=== PATIENT | female | born 1960 | race African-American/Black ===

== ENCOUNTER → 2017-10-25 18:35 | Outpatient (REF) | payer OTHER, SELFPAY | LOC: LAB 18:35 | PROVIDERS: Visit Provider Nurse Practitioner Obstetrics & Gynecology | DX: Z01.419 Encounter for gynecological examination (general) (routine) without abnormal findings (principal); N39.0 Urinary tract infection, site not specified | CPT/HCPCS: 87086; 87088; 87186 ==

== ENCOUNTER → 2017-11-20 10:49 | Outpatient (CLI) | payer OTHER, SELFPAY ==
--- NOTE | 2017-11-20 10:51 | MM_ITS ---
MM Dig screening mamm BI w/CAD CAD Screening ORDERING PHYSICIAN : Jd Purvis MD PATIENT AGE: 57 years GENDER: Female HISTORY.. Estradiol . No new complaints. Very Minor asymmetry stable Family history. Sibling sister and cousin with breast cancer postmenopausal TECHNIQUE: Standard CC and MLO images were obtained. R2 CAD reviewed. FINDINGS: Moderate dense residual breast tissue at the anterior, retroareolar region extending towards upper-outer quadrant. Similar overall pattern to previous studies. No no prominent change. Mammography of slight decrease sensitivity in breast of this inhomogeneous character with areas of moderate density... no suspicious calcifications.. No suspicious dominant nor prominent mass... Self breast examination perhaps to be encouraged, and if any palpable areas developing low threshold for ultrasound suggested in this moderately dense breast. (Ultrasound is a useful compliment,/augment to mammography in denser breast tissue) RIGHT BREAST: Overall appears stable. Slightly denser glandular tissue at the retroareolar region on right than LEFT BREAST:Area of minimal density at the deep lateral left breast, likely very slight accentuated a summation shadow today. Also it dissipates and is not evident on today's additional axillary cc view supporting merely summation shadow.. Follow-up in one year adequate. Other similar areas of been seen previously for example 2016. IMPRESSION:.... Follow-up in one year 1. The Moderately dense breast bilaterally slightly decreases sensitivity of mammography. . 2. Overall no significant new areas of concern. Bilateral follow-up in one year recommended. 3. Self breast examination perhaps to be encouraged, and if any palpable areas developing low threshold for ultrasound suggested in this moderately dense breast. Area 4. Recommend follow-up mammogram in one year. BI-RADS Category: 2 Benign Finding(s) RECOMMENDED FOLLOW-UP: 1YR - 1 YEAR FOLLOW-UP (A letter has been sent to the patient regarding results of the study.)
== END ==
PROVIDERS: Family Provider Family Medicine; PCP Family Medicine; Visit Provider Nurse Practitioner Obstetrics & Gynecology
DX: Z12.31 Encounter for screening mammogram for malignant neoplasm of breast (principal)
CPT/HCPCS: 77067

== ENCOUNTER → 2018-12-04 16:10 | Outpatient (CLI) | payer BC, SELFPAY ==
--- NOTE | 2018-12-04 16:12 | MM_ITS ---
MM Dig screening mamm BI w/CAD CAD Screening COMPARISON: Digital mammograms with CAD 11/20/2017 and 10/10/2016 INDICATION: There is a history of breast cancer patient maternal cousin and the patient's sister TECHNIQUE: Standard CC and MLO images were obtained. R2 CAD reviewed. FINDINGS: Moderate somewhat heterogenic fibroglandular densities are seen in the subareolar regions of both breasts. There are couple benign-appearing microcalcifications in each breast. There is no new or suspicious lesion in either breast and there are no suspicious microcalcifications. IMPRESSION: Fibrofatty parenchyma with no suspicious lesion seen BI-RADS Category: 2 Benign Finding(s) RECOMMENDED FOLLOW-UP: 1YR - 1 YEAR FOLLOW-UP (A letter has been sent to the patient regarding results of the study.)
== END ==
PROVIDERS: PCP Family Medicine; Visit Provider Nurse Practitioner Obstetrics & Gynecology
DX: Z12.31 Encounter for screening mammogram for malignant neoplasm of breast (principal)
CPT/HCPCS: 77067

== ENCOUNTER → 2020-01-17 09:19 | Outpatient (CLI) | payer BC, SELFPAY ==
--- NOTE | 2020-01-17 09:19 | MM_ITS ---
PROCEDURE: MM DIG SCREENING MAMM BI W/CAD Patient Age:59Y CLINICAL INDICATION: Routine screening mammogram. 59-year-old. Takes estrogen. No new complaints Family history. Sister and maternal cousin with breast cancer COMPARISON: [facility] DIGITAL MAMM-SCREEN BILATERAL from 06/20/2012 [facility] DIG MAMM-SCREEN XENIA from 06/27/2013 [id number] DIG MAMM-DX UNI ADD VIEWS-RT from 07/11/2013 [facility] DIG MAMM-SCREEN XENIA from 07/21/2014 [facility] DIG MAMM-SCREEN XENIA from 09/29/2015 [facility] DIG MAMM-SCREEN XENIA W/CAD from 10/10/2016 DMDXUWAR DIG MAMM-DX UNI RT W/AV W/CAD from 11/16/2016 [facility] MM Dig screening mamm BI w/CAD from 11/20/2017 DIG MAMM-SCREEN EXNIA from 12/04/2018 TECHNIQUE: Standard CC and MLO images were obtained. R2 CAD reviewed. Bilateral digital breast tomosynthesis included. FINDINGS: Moderate breast density bilaterally. Stable appearing mild asymmetry of the breast compared to multiple prior studies. No new dominant or suspicious mass either breast. No suspicious calcifications. Right breast. No new areas significant concern. Asymmetric area of relative density at the lateral right breast which remains stable over numerous studies dating back to 2015, and even the 2013 mammogram, supporting this is most likely asymmetric area fibroglandular tissue Left breast. no new areas of concern Stable appearing areas of mild asymmetry most notable in the retroareolar region IMPRESSION: Stable bilateral mammogram. Moderately breast density. Bilateral follow-up 1 year-is recommended and would be encouraged BI-RAD Category: 2 Benign Finding(s) FOLLOW-UP: 1YR 1 Year Follow-up (A letter has been sent to the patient regarding results of the study.) Dictated b Rian Lomax MD 01/18/2020 09:43 Rian Lomax MD in [place] 01/18/2020 09:43
== END ==
PROVIDERS: PCP Family Medicine; Visit Provider Nurse Practitioner Obstetrics & Gynecology
DX: Z12.31 Encounter for screening mammogram for malignant neoplasm of breast (principal)
CPT/HCPCS: 77063; 77067

== ENCOUNTER → 2020-07-03 14:58 | Outpatient (CLI) | payer BC, SELFPAY | PROVIDERS: Visit Provider Nurse Practitioner Obstetrics & Gynecology | DX: N39.0 Urinary tract infection, site not specified (principal) | CPT/HCPCS: 87086; 87088; 87186 ==

== ENCOUNTER 2020-09-01 17:13 | Emergency (ER) | payer BC, SELFPAY ==
[2020-09-01 17:31] VITALS: BP 130/72; PULSE 71; RESP 14; TEMP 36.9; O2SAT 99; BMI 28.7
--- NOTE | 2020-09-01 17:44 | HMH.EDUTC ---
[facility] [place] Clinical Impression: Acute bacterial sinusitis Disposition: Home, Self-Care Condition on Discharge: Good Instructions: Sinusitis, DI for Sinusitis Additional Instructions: Drink plenty of fluids. Take tylenol or ibuprofen for pain or fever. Take the medications as directed. Follow up with your regular doctor. GO TO THE ER FOR ANY WORSENING SYMPTOMS Prescriptions: Albuterol Sulfate [Albuterol Sulfate Hfa] 2 puffs IH Q6HP PRN 30 Days #1 hfa.aer.[email or web address] PRN Reason: Shortness Of Breath Transmission Status: Received by [id number] predniSONE [Prednisone 20mg Tab] 20 mg PO BID 4 Days #8 tab Transmission Status: Received by [facility] Benzonatate [Tessalon Perle 100mg Cap] 100 mg PO TIDP PRN #30 cap PRN Reason: Cough Transmission Status: Received by [facility] Azithromycin [Z-Dean 250mg Tab*] 250 mg PO UD DOSE PK #6 tab Transmission Status: Received by [id number] Referrals: Dwayne Whitaker MD [Primary Care Provider] - Time of Disposition: 17:47 Medical Decision Making - Medical Records Medical records reviewed: No: I reviewed the patient's medical records. - Yang Inquiry Pt receiving controlled substance: No Vital Signs: 09/01/20 17:31 09/01/20 17:56 Temperature 98.5 F 98.3 F Temperature Source Oral Pulse Rate 79 Pulse Rate [Right] 71 Respiratory Rate 14 16 Blood Pressure 128/70 Blood Pressure [Right Arm] 130/72 Blood Pressure Mean [Right Arm] 91 Blood Pressure Source [Right Arm] Automatic Cuff Blood Pressure Position [Right Arm] Sitting 02 Sat by Pulse Oximetry 99 Oxygen Delivery Method Room Air [facility] [place] - General Stated complaint: [place] Congestion cough sneezing Time Seen by Provider: 09/01/20 17:44 Mode of Arrival: Ambulatory Source of Information: Patient Limitations: No Limitations Description of Symptoms (Recalled from Triage Doc. by RN): sinus congestion. HEENT Symptoms (Recalled from RN notes): Yes (sinus congestion) Resp Symptoms (Recalled from RN notes): No Skin Symptoms (Recalled from RN notes): No MS Symptoms (Recalled from RN notes): No Functional Status (Recalled from RN notes): na - History of Present Illness Provider Complaint: She c/o sinus congestion and sinus drainage for the past 1 week. She has began to have a cough with yellowish sputum also. She denies any fever/chills/body aches. - Related Data Home Medications Medication Instructions Recorded Confirmed aspirin 81 mg tablet,delayed 81 mg PO ONCE 09/07/17 07/03/20 release lisinopril 40 mg tablet 20 mg PO BID 90 Days #90 09/07/17 07/03/20 metformin 500 mg tablet 500 mg PO DAILY 30 Days #30 09/07/17 07/03/20 metoprolol tartrate 100 mg tablet 100 mg PO BID 90 Days #180 09/07/17 07/03/20 Amlodipine Besylate 5 mg PO DAILY 07/13/18 07/03/20 Rosuvastatin Calcium 20 mg PO DAILY 07/13/18 07/03/20 dicyclomine 10 mg capsule 10 mg PO TID 90 Days #270 cap 09/12/18 07/03/20 triamterene 37.5 1 tab PO DAILY tab 08/15/19 07/03/20 mg-hydrochlorothiazide 25 mg tablet Previous Rx's Medication Instructions Recorded diclofenac sodium 1 % topical gel 4 g TOPICAL QID PRN #100 g 08/15/19 estradiol 1 mg tablet 1 mg PO DAILY #90 tab 02/25/20 oxybutynin chloride 5 mg tablet 5 mg PO TID #90 tab 02/25/20 nitrofurantoin 100 mg PO Q12H 5 Days #10 cap 07/03/20 monohydrate/macrocrystals 100 mg capsule phenazopyridine 100 mg tablet 100 mg PO TID 3 Days #9 tab 07/03/20 Albuterol Sulfate [Albuterol 2 puffs IH Q6HP PRN 30 Days #1 09/01/20 Sulfate Hfa] hfa.aer.ad Azithromycin [Z-Dean 250mg Tab*] 250 mg PO UD DOSE PK #6 tab 09/01/20 Benzonatate [Tessalon Perle 100mg 100 mg PO TIDP PRN #30 cap 09/01/20 Cap] predniSONE [Prednisone 20mg 20 mg PO BID 4 Days #8 tab 09/01/20 Tab] Allergies Allergy/AdvReac Type Severity Reaction Status Date / Time Penicillins Allergy Hives Verified 09/01/20 17:37 - Worker's Comp Is this a Worker's Com
[2020-09-01 17:56] VITALS: BP 128/70; PULSE 79; RESP 16; TEMP 36.8
== END 2020-09-01 17:56 | disposition home or self-care (01) ==
PROVIDERS: Emergency Provider Nurse Practitioner Family; PCP Family Medicine
DX: J01.90 Acute sinusitis, unspecified (principal); Z88.0 Allergy status to penicillin; K21.9 Gastro-esophageal reflux disease without esophagitis; E11.9 Type 2 diabetes mellitus without complications; E78.5 Hyperlipidemia, unspecified; I10 Essential (primary) hypertension; Z79.899 Other long term (current) drug therapy
CPT/HCPCS: 99202; G0463

== ENCOUNTER → 2021-04-30 08:17 | Outpatient (CLI) | payer BC, SELFPAY ==
--- NOTE | 2021-04-30 08:17 | MM_ITS ---
PROCEDURE INFORMATION: Exam: MG Bilateral Screening 3D Mammography Exam date and time: 04/30/2021 8:17 AM Age: 60 years old Clinical indication: Encounter for screening mammogram for malignant neoplasm of breast TECHNIQUE: Imaging protocol: Bilateral screening tomosynthesis and 2D mammography including computer-aided detection (CAD) when performed. COMPARISON: 1. MG MM DIG SCREENING MAMM BI W/CAD 01/17/2020 9:41 AM 2. MG DIG MAMM-SCREEN XENIA 12/04/2018 4:19 PM FINDINGS: MAMMOGRAPHY: Breast composition: The breast tissue is heterogeneously dense, which may obscure small masses. Mass: None. Architectural distortion: None. Calcifications: No suspicious calcifications. Asymmetric density: None. Skin thickening: None. Axillary adenopathy: None. IMPRESSION: No mammographic evidence of malignancy. Annual screening is recommended unless otherwise clinically indicated. ASSESSMENT: BI-RADS Category 1: Negative
== END ==
PROVIDERS: PCP Family Medicine; Visit Provider Nurse Practitioner Obstetrics & Gynecology
DX: Z12.31 Encounter for screening mammogram for malignant neoplasm of breast (principal)
CPT/HCPCS: 77063; 77067

== ENCOUNTER 2021-10-13 17:05 | Observation (INO) | payer BC, SELFPAY ==
[2021-10-13 17:15] VITALS: BP 134/81; PULSE 83; RESP 16; TEMP 36.8; O2SAT 100; BMI 27.6
--- NOTE | 2021-10-13 17:40 | HMH.EDUTC ---
[facility] [place] Impression: Localized swelling, mass or lump of neck Disposition: Still a Patient Condition on Discharge: Fair Referrals: Dwayne Whitaker MD [Primary Care Provider] - Medical Decision Making - Yang Inquiry Pt receiving controlled substance: No Yang was queried for this patient: No Vital Signs: 10/13/21 17:15 10/13/21 18:43 10/13/21 19:40 Temperature 98.3 F 97.7 F Temperature Source Oral Oral Pulse Rate 84 Pulse Rate [Right Brachial] 83 81 Respiratory Rate 16 16 16 Blood Pressure 122/78 Blood Pressure [Right Arm] 134/81 138/72 Blood Pressure Mean [Right Arm] 98 94 Blood Pressure Source Automatic Cuff Blood Pressure Source [Right Arm] Automatic Cuff Automatic Cuff Blood Pressure Position Sitting Blood Pressure Position [Right Arm] Sitting Sitting 02 Sat by Pulse Oximetry 100 98 98 Oxygen Delivery Method Room Air Room Air Room Air - Lab Data Lab Results 10/13/21 19:36: WBC 12.7 H, RBC 4.71, Hgb 14.2, Hct 44.1, MCV 93.8, MCH 30.1, MCHC 32.2, RDW 14.0, Plt Count 380, MPV 7.5, Neut % (Auto) 77.1, Lymph % (Auto) 14.9, [place] % (Auto) 3.9, Eos % (Auto) 1.8, Baso % (Auto) 2.5 H, Neut # (Auto) 9.8 H, Lymph # (Auto) 1.9, [place] # (Auto) 0.5, Eos # (Auto) 0.2, Baso # (Auto) 0.3 H, ESR 39 H 10/13/21 19:36: Sodium 141, Potassium 2.9 L*, Chloride 102, Carbon Dioxide 30, Anion Gap 11.9, BUN 12, Creatinine 0.50 L, Estimated Creat Clear 64, Estimated GFR 125, Est GFR ( Amer) 151, Glucose 110 H, Calcium 9.6, Total Bilirubin 0.2, AST 21, ALT 13, Alkaline Phosphatase 97, C-Reactive Protein 60.5 H, Total Protein 8.4 H, Albumin 4.3, Globulin 4.1 H, Albumin/Globulin Ratio 1.0 L, Procalcitonin 0.043 Result diagrams: 10/13/21 19:36 10/13/21 19:36 Orders (Tests/Meds): ED MEDICATIONS Discontinued Medications Generic Name Dose Route Start Last Admin Trade Name Tova PRN Reason Stop Dose Admin Iopamidol 150 ml 10/13/21 20:43 10/13/21 20:44 Iopamidol-370 (76%);100ml Bottle IV 10/13/21 20:44 150 ml ONCE ONE Administration Ketorolac Tromethamine 30 mg 10/13/21 19:04 10/13/21 19:38 Ketorolac 30mg/Ml Vial IV 10/13/21 19:05 30 mg ONCE ONE Administration Potassium Chloride 40 meq 10/13/21 20:36 Potassium Chloride 20meq Tab PO 10/13/21 20:37 ONCE ONE Sodium Chloride 10 ml 10/13/21 20:43 10/13/21 20:44 Sodium Chloride 0.9% 10ml Syr (Rad Only) IV 10/13/21 20:44 10 ml ONCE ONE Administration ORDERS Category Date Time Status CT chest w con Stat Cat Scan 10/13/21 18:[address] soft tissue neck w con Stat Cat Scan 10/13/21 18:58 Ordered Medical Decision Narrative: Due to location size, redness and tenderness associated with swollen area on right side of neck area and reports issues with swallowing at times recommended that patient be sent to the ED for further work up and evaluation and patient agreed Called ED spoke with Taisha and patient was moved to room 10 [facility] [place] - General Stated complaint: knot on side of neck/shoulder Time Seen by Provider: 10/13/21 17:40 Mode of Arrival: Ambulatory Source of Information: Patient Limitations: No Limitations Description of Symptoms (Recalled from Triage Doc. by RN): PATEINT C/O NECK PAIN AND SWELLING TO RIGHT SIDE OF NECK X 2 WEEKS HEENT Symptoms (Recalled from RN notes): Yes Resp Symptoms (Recalled from RN notes): No Skin Symptoms (Recalled from RN notes): No MS Symptoms (Recalled from RN notes): No Functional Status (Recalled from RN notes): WNL - History of Present Illness Provider Complaint: Patient states that she noticed she had a large swollen hard area on the right side of her neck about 2 weeks ago States that she felt like she had a hard time swallowing at times and pain in the area with movement. States that area has continued to get larger and feels like it is going up the side of her head causing her to have headaches State that she was worried today when it was sti
--- NOTE | 2021-10-13 17:42 | PC.NURSE ---
PATIENT SENT TO ER PER Paul VALDEZ APRN FOR FURTHER EVALUATION. REPORT GIVEN TO Lalit EUCEDA RN BY Paul VALDEZ APRN
--- NOTE | 2021-10-13 18:35 | HMH.EDGENADL ---
ED Disposition Condition on Discharge: Fair - Critical Care Critical Care Time: No <Gregory Cherry - Last Filed: 10/13/21 20:41> <Oniel Romero - Last Filed: 10/13/21 22:19> Clinical Impression: Localized swelling, mass or lump of neck Abscess of skin or subcutaneous tissue Qualifiers: Site of cutaneous abscess: neck Qualified Code(s): L02.11 - Cutaneous abscess of neck Disposition: Admitted As Inpatient Referrals: Dwayne Whitaker MD [Primary Care Provider] - Attestation: On 10/13/21, the high probability of a clinically significant, sudden or life threatening deterioration of the following system(s) required my full and direct attention, intervention and personal management. The time I documented below is in addition to time spent performing reported procedures but includes the following listed in this critical care notation. Medical Decision Making - Yang Inquiry Pt receiving controlled substance: No - Lab Data Result diagrams: 10/13/21 19:36 10/13/21 19:36 <Gregory Cherry - Last Filed: 10/13/21 20:41> - Medical Records Medical records reviewed: Yes: I reviewed the patient's medical records. - Lab Data Lab results reviewed: Yes: I reviewed the patient's lab results. Result diagrams: 10/13/21 19:36 10/13/21 19:36 - CT Data CT Scan: Chest, Other Time Received: 22:[address] Reviewed: Yes: I have viewed the radiologist's interpretation Preliminary Findings: Abnormal (see reports ) <Oniel Romero - Last Filed: 10/13/21 22:19> Vital Signs: 10/13/21 17:15 10/13/21 18:38 10/13/21 18:43 Temperature 98.3 F 97.7 F Temperature Source Oral Oral Pulse Rate 81 Pulse Rate [Right Brachial] 83 81 Respiratory Rate 16 16 Blood Pressure 138/72 Blood Pressure [Right Arm] 134/81 138/72 Blood Pressure Mean [Right Arm] 98 94 Blood Pressure Source Blood Pressure Source [Right Arm] Automatic Cuff Automatic Cuff Blood Pressure Position Blood Pressure Position [Right Arm] Sitting Sitting 02 Sat by Pulse Oximetry 100 98 98 Oxygen Delivery Method Room Air Room Air 10/13/21 19:00 10/13/21 19:40 10/13/21 21:01 Temperature Temperature Source Pulse Rate 71 84 84 Pulse Rate [Right Brachial] Respiratory Rate 16 Blood Pressure 128/63 122/78 124/71 Blood Pressure [Right Arm] Blood Pressure Mean [Right Arm] Blood Pressure Source Automatic Cuff Blood Pressure Source [Right Arm] Blood Pressure Position Sitting Blood Pressure Position [Right Arm] 02 Sat by Pulse Oximetry 99 98 97 Oxygen Delivery Method Room Air Room Air - Lab Data Lab Results 10/13/21 19:36: WBC 12.7 H, RBC 4.71, Hgb 14.2, Hct 44.1, MCV 93.8, MCH 30.1, MCHC 32.2, RDW 14.0, Plt Count 380, MPV 7.5, Neut % (Auto) 77.1, Lymph % (Auto) 14.9, [place] % (Auto) 3.9, Eos % (Auto) 1.8, Baso % (Auto) 2.5 H, Neut # (Auto) 9.8 H, Lymph # (Auto) 1.9, [place] # (Auto) 0.5, Eos # (Auto) 0.2, Baso # (Auto) 0.3 H, ESR 39 H 10/13/21 19:36: Sodium 141, Potassium 2.9 L*, Chloride 102, Carbon Dioxide 30, Anion Gap 11.9, BUN 12, Creatinine 0.50 L, Estimated Creat Clear 64, Estimated GFR 125, Est GFR ( Amer) 151, Glucose 110 H, Calcium 9.6, Total Bilirubin 0.2, AST 21, ALT 13, Alkaline Phosphatase 97, C-Reactive Protein 60.5 H, Total Protein 8.4 H, Albumin 4.3, Globulin 4.1 H, Albumin/Globulin Ratio 1.0 L, Procalcitonin 0.043 Orders (Tests/Meds): ED MEDICATIONS Discontinued Medications Generic Name Dose Route Start Last Admin Trade Name Freq PRN Reason Stop Dose Admin Iopamidol 150 ml 10/13/21 20:43 10/13/21 20:44 Iopamidol-370 (76%);100ml Bottle IV 10/13/21 20:44 150 ml ONCE ONE Administration Ketorolac Tromethamine 30 mg 10/13/21 19:04 10/13/21 19:38 Ketorolac 30mg/Ml Vial IV 10/13/21 19:05 30 mg ONCE ONE Administration Potassium Chloride 40 meq 10/13/21 20:36 05/04/22 21:10 Potassium Chloride 20meq Tab PO 10/13/21 20:37 40 meq ONCE ONE Administratio
[2021-10-13 18:38] VITALS: BP 138/72; PULSE 81; O2SAT 98
[2021-10-13 18:43] VITALS: BP 138/72; PULSE 81; RESP 16; TEMP 36.5; O2SAT 98; BMI 28.5
--- NOTE | 2021-10-13 18:58 | CT_ITS ---
PROCEDURE INFORMATION: Exam: CT Chest With Contrast; Diagnostic Exam date and time: 10/13/2021 8:29 PM Age: 61 years old Clinical indication: Mass, lump, or swelling in the chest; Additional info: Mass right trapezius/base of neck TECHNIQUE: Imaging protocol: Diagnostic computed tomography of the chest with contrast. Radiation optimization: All CT scans at this facility use at least one of these dose optimization techniques: automated exposure control; mA and/or kV adjustment per patient size (includes targeted exams where dose is matched to clinical indication); or iterative reconstruction. Contrast material: ISOVUE; Contrast volume: 75 ml; Contrast route: IV; COMPARISON: No relevant prior studies available. FINDINGS: Lungs: Unremarkable. No consolidation. No masses. Pleural spaces: Unremarkable. No pneumothorax. No pleural effusion. Heart: Unremarkable. No cardiomegaly. No pericardial effusion. Coronary arteries: No evidence of coronary artery calcification. Mediastinal space: No evidence of mediastinal or hilar mass. Lymph nodes: Granulomatous calcifications within station 4R and station 10R lymph nodes, benign. No enlarged lymph nodes. Vasculature: Unremarkable. No aortic aneurysm. Bones/joints: Unremarkable. No acute fracture. Soft tissues: There is a 2.7 x 2.7 x 2.2 cm well-circumscribed low-attenuation nonenhancing lesion present along the anterior margin of the right trapezius. Attenuation of the lesion is close to water. Exact etiology is uncertain although the possibility that this represents a seroma in this location is not excluded. And edematous lymph node could also have this appearance. It would be better assessed by magnetic resonance imaging with gadolinium enhancement. IMPRESSION: 1. 2.7 x 2.7 x 2.2 cm well-circumscribed low-attenuation nonenhancing lesion along anterior margin of right trapezius. Diagnostic considerations would be a seroma or edematous lymph node. Correlation with magnetic resonance imaging of the neck with gadolinium enhancement would be helpful. 2. No acute process within the chest. 3. Benign granulomatous calcification within station 4R and station 10R lymph nodes, benign.
--- NOTE | 2021-10-13 18:58 | CT_ITS ---
PROCEDURE INFORMATION: Exam: CT Neck With Contrast Exam date and time: 10/13/2021 8:34 PM Age: 61 years old Clinical indication: Mass, lump, or swelling in neck; Additional info: Mass right trapezius/base of neck TECHNIQUE: Imaging protocol: Computed tomography images of the neck with contrast. Radiation optimization: All CT scans at this facility use at least one of these dose optimization techniques: automated exposure control; mA and/or kV adjustment per patient size (includes targeted exams where dose is matched to clinical indication); or iterative reconstruction. Contrast material: ISOVUE; Contrast volume: 70 ml; Contrast route: IV; COMPARISON: CT CHEST W CON 10/13/2021 8:29 PM FINDINGS: Nasopharynx: Unremarkable. Oropharynx: Unremarkable. No significant tonsillar enlargement. Hypopharynx: Unremarkable. Larynx: Unremarkable. Normal epiglottis. Retropharyngeal space: Unremarkable. Submandibular/Parotid glands: Normal. Glands are normal in size. Thyroid: Normal. No enlarged or calcified nodules. Lymph nodes: Mildly large amount of right posterior triangle lymph nodes could be reactive. Trachea: Visualized trachea is unremarkable. Lungs: Unremarkable as visualized. Bones/joints: Unremarkable. No acute fracture. Vasculature: The left vertebral artery originates directly from the aorta. Soft tissues: There is a peripherally enhancing cystic appearing mass in the right supraclavicular tissues between the trapezius muscle in the paraspinal muscles. This measures 3 x 2.9 cm. There is surrounding soft tissue edema and enhancement. IMPRESSION: There is a peripherally enhancing cystic appearing mass in the right supraclavicular tissues between the trapezius muscle in the paraspinal muscles. This measures 3 x 2.9 cm. There is surrounding soft tissue edema and enhancement. Abscess would be most likely. Malignancy cannot be entirely excluded.
[2021-10-13 19:00] VITALS: BP 128/63; PULSE 71; O2SAT 99
[2021-10-13 19:40] VITALS: BP 122/78; PULSE 84; RESP 16; O2SAT 98
[2021-10-13 19:47] LABS: Basophils # 0.3 K/mm3 (0-0.2); Basophils % 2.5 % (0.1-2.0); Eosinophils # 0.2 K/mm3 (0.0-0.4); Eosinophils % 1.8 % (0.1-12.0); Hematocrit 44.1 % (37.0-47.0); Hemoglobin 14.2 g/dL (12.2-16.2); Lymphocytes # 1.9 K/mm3 (0.7-4.5); Lymphocytes % 14.9 % (10-50); Mean Corpuscular HGB Conc 32.2 g/dL (31.8-35.4); Mean Corpuscular Hemoglobin 30.1 pg (27.0-31.2); Mean Corpuscular Volume 93.8 fl (81-99); Mean Platelet Volume 7.5 fl (7.4-10.4); Monocytes # 0.5 K/mm3 (0.1-1.0); Monocytes % 3.9 % (1.7-9.3); Neutrophils # 9.8 K/mm3 (1.8-7.8); Neutrophils % 77.1 % (37.0-80.0); Platelet Count 380 K/mm3 (142-424); Red Blood Count 4.71 M/mm3 (4.20-5.40); White Blood Count 12.7 K/mm3 (4.8-10.8)
[2021-10-13 19:53] LABS: Alanine Aminotransferase 13 U/L (12-78); Albumin Level 4.3 g/dl (3.5-5.0); Alkaline Phosphatase 97 U/L (38-126); Anion Gap 11.9 mEq/L (5-15); Aspartate Amino Transferase 21 U/L (14-36); Bilirubin,Total 0.2 mg/dl (0.2-1.3); Blood Urea Nitrogen 12 mg/dl (7-17); Calcium 9.6 mg/dl (8.4-10.2); Carbon Dioxide 30 mmol/L (22.0-30.0); Chloride 102 mmol/L (98-107); Creatinine Clearance Estimated 64 mL/min (50-200); Estimated Glomerular Filt Rate 125 ml/min (>60); GFR (African American) 151 ML/MIN (>60); Globulin 4.1 g/dL (1.3-3.2); Glucose 110 mg/dl (74-100); Sodium 141 mmol/L (136-145); Total Protein,Serum 8.4 g/dl (6.3-8.2)
[2021-10-13 19:58] LABS: C-Reactive Protein 60.5 mg/L (0-4); Potassium 2.9 mmoL/L (3.5-5.1)
--- NOTE | 2021-10-13 19:59 | PC.NURSE ---
Dr. Cherry notified of K+ 2.9 per Cristela Bradley RN
[2021-10-13 20:12] LABS: Procalcitonin 0.043 ng/mL (0.0-2.0)
[2021-10-13 20:41] LABS: Erythrocyte Sedimentation Rate 39 mm/hr (0-30)
--- NOTE | 2021-10-13 20:43 | PC.NURSE ---
Pt returned from CT
[2021-10-13 21:01] VITALS: BP 124/71; PULSE 84; O2SAT 97
--- NOTE | 2021-10-13 21:26 | PC.NURSE ---
Updated pt on POC and that we waiting on final CT results. No new needs at this time
--- NOTE | 2021-10-13 21:47 | PC.NURSE ---
Dr.Mulberry layla MD advised at this time he wanted to order BC and lactic acid. Notified lab for draw
--- NOTE | 2021-10-13 21:48 | PC.NURSE ---
speaking with Dr. Ramos
--- NOTE | 2021-10-13 22:08 | PC.NURSE ---
Lab at bedside
[2021-10-13 22:27] VITALS: BMI 28.3
[2021-10-13 22:28] LABS: Coronavirus 19, PCR Not Detected (NotDetected); Influenza A, PCR Not Detected (NotDetected); Influenza B, PCR Not Detected (NotDetected)
--- NOTE | 2021-10-13 22:32 | PC.NURSE ---
spoke with dana at [facility] watch for vancomycin dose
--- NOTE | 2021-10-13 22:34 | PC.NURSE ---
Updated pt on POC. Agreeable with admission
[2021-10-13 22:35] LABS: Lactic Acid 1.4 mmol/L (0.7-2.1)
--- NOTE | 2021-10-13 23:53 | PC.NURSE ---
Called report to In[facility]
[2021-10-14] VITALS: BP 142/75; PULSE 68; RESP 20; TEMP 36.8; O2SAT 94
[2021-10-14 00:11] VITALS: BP 114/71; PULSE 84; RESP 16; TEMP 36.6; O2SAT 98
--- NOTE | 2021-10-14 00:16 | PC.NURSE ---
patient up to floor via wheelchair @ this time .
[2021-10-14 01:51] VITALS: O2SAT 94
[2021-10-14 06:43] LABS: Basophils # 0.1 K/mm3 (0-0.2); Basophils % 0.7 % (0.1-2.0); Eosinophils # 0.2 K/mm3 (0.0-0.4); Eosinophils % 1.4 % (0.1-12.0); Hematocrit 39.5 % (37.0-47.0); Hemoglobin 12.8 g/dL (12.2-16.2); Lymphocytes # 1.9 K/mm3 (0.7-4.5); Lymphocytes % 17.4 % (10-50); Mean Corpuscular HGB Conc 32.5 g/dL (31.8-35.4); Mean Corpuscular Hemoglobin 30.3 pg (27.0-31.2); Mean Corpuscular Volume 93.4 fl (81-99); Mean Platelet Volume 7.4 fl (7.4-10.4); Monocytes # 0.7 K/mm3 (0.1-1.0); Monocytes % 6.1 % (1.7-9.3); Neutrophils # 8.1 K/mm3 (1.8-7.8); Neutrophils % 74.4 % (37.0-80.0); Platelet Count 320 K/mm3 (142-424); Red Blood Count 4.23 M/mm3 (4.20-5.40); White Blood Count 10.9 K/mm3 (4.8-10.8)
[2021-10-14 06:46] LABS: Anion Gap 9.2 mEq/L (5-15); Blood Urea Nitrogen 10 mg/dl (7-17); Calcium 8.9 mg/dl (8.4-10.2); Carbon Dioxide 27 mmol/L (22.0-30.0); Chloride 106 mmol/L (98-107); Creatinine Clearance Estimated 63 mL/min (50-200); Estimated Glomerular Filt Rate 161 ml/min (>60); GFR (African American) 195 ML/MIN (>60); Glucose 114 mg/dl (74-100); Potassium 3.2 mmoL/L (3.5-5.1); Sodium 139 mmol/L (136-145)
--- NOTE | 2021-10-14 06:47 | HMH.GSCON ---
*Admission Date: 10/14/21 *Reason for consult:: Neck abscess *History of present illness: Patient is a very pleasant 61-year-old female. She states that a little bit over 2 weeks ago she had developed a sore throat. She has had some tenderness in the right neck area distally near the trapezius. This has been progressive with some radiation of pain. She presented to the urgent treatment center last night and was sent to the emergency department where she was seen and evaluated. She underwent CT scan which revealed peripherally enhancing cystic-appearing mass in the right supraclavicular tissues between the trapezius muscle and paraspinal muscles. She was admitted for inpatient management. Surgical consultation was obtained. Review of Systems - Review of Systems Review of systems:: pertinent systems reviewed and negative unless documented below [facility] History I have reviewed the patient's past medical history: Yes Medical History: Reports:: Diabetes Mellitus Type 1, Diabetes Mellitus Type 2, Gastroesophageal Reflux Disease(GERD), Hyperlipidemia, Hypertension, Migraine Denies:: Internal Pacemaker, Lung Disease, Seizures *Have you ever received a pneumonia vaccine?: Yes *Have you received a flu vaccine this season?: Yes Other Medical History: Reports: Arthritis Other Surgeries: Yes: No Previous Surgery, Appendectomy, Colonoscopy, Hysterectomy-Total, Tubal Ligation, Other (spinal stenosis surgery). No: Pacemaker Amputation: No Fractures: No - *Social History Last grade of school completed: Some college Smoking Status: Current every day smoker Tobacco Type: cigarettes # Packs/Day (cigarettes): 1 Alcohol Intake: current Alcohol Intake Frequency:: a few times a month *Occupational Status:: employed Housing: house Household Members: family *Travel in the last 8 weeks: None Family Hx:: Diabetes, Cancer, Hypertension Meds Home Medications Medication Instructions Recorded Confirmed Type aspirin 81 mg tablet,delayed 81 mg PO ONCE 09/07/17 10/13/21 History release metformin 500 mg tablet 500 mg PO DAILY 30 Days #30 09/07/17 10/13/21 History metoprolol tartrate 100 mg tablet 100 mg PO BID 90 Days #180 09/07/17 10/13/21 History Amlodipine Besylate 5 mg PO DAILY 07/13/18 10/13/21 History Rosuvastatin Calcium 20 mg PO DAILY 07/13/18 10/13/21 History dicyclomine 10 mg capsule 10 mg PO TID 90 Days #270 cap 09/12/18 10/13/21 History triamterene 37.5 1 tab PO DAILY tab 08/15/19 10/13/21 History mg-hydrochlorothiazide 25 mg tablet Albuterol Sulfate [Albuterol 2 puffs IH Q6HP PRN 30 Days #1 09/01/20 10/13/21 Rx Sulfate Hfa] hfa.aer.ad lisinopril 40 mg tablet 20 mg PO DAILY 90 Days #45 tab 04/30/21 10/13/21 History Oxybutynin Chloride See Rx Instructions .ROUTE .COMPLEX 10/13/21 10/13/21 History estradioL [Estradiol] 1 mg PO DAILY 10/13/21 10/13/21 History Allergies Allergy/AdvReac Type Severity Reaction Status Date / Time Penicillins Allergy Hives Verified 04/30/21 09:38 Exam Vital signs and Labs for Last 24 Hours: Temp Pulse Resp BP Pulse Ox 97.9 F 84 16 114/71 94 L 10/14/21 00:11 10/14/21 00:11 10/14/21 00:11 10/14/21 00:11 10/14/21 01:51 Laboratory Results - last 24 hr 10/13/21 19:36: WBC 12.7 H, RBC 4.71, Hgb 14.2, Hct 44.1, MCV 93.8, MCH 30.1, MCHC 32.2, RDW 14.0, Plt Count 380, MPV 7.5, Neut % (Auto) 77.1, Lymph % (Auto) 14.9, [place] % (Auto) 3.9, Eos % (Auto) 1.8, Baso % (Auto) 2.5 H, Neut # (Auto) 9.8 H, Lymph # (Auto) 1.9, [place] # (Auto) 0.5, Eos # (Auto) 0.2, Baso # (Auto) 0.3 H, ESR 39 H 10/13/21 19:36: Sodium 141, Potassium 2.9 L*, Chloride 102, Carbon Dioxide 30, Anion Gap 11.9, BUN 12, Creatinine 0.50 L, Estimated Creat Clear 64, Estimated GFR 125, Est GFR ( Amer) 151, Glucose 110 H, Calcium 9.6, Total Bilirubin 0.2, AST 21, ALT 13, Alkaline Phosphatase 97, C-Reactive Protein 60.5 H, Total Protein 8.4 H, Albumin 4.3, Globulin 4.1 H, Albumin/Globulin Ratio 1.0 L, Procalcitonin 0.043 05/0
[2021-10-14 07:05] LABS: POC Glucose,Bedside 99 (70-110)
--- NOTE | 2021-10-14 07:26 | P.CONPHA_ITS ---
[facility] Pharmacy VTE Monitoring - Patient Demographics Admission date: 10/13/21 Report Date: 10/14/21 Time: 07:26 Allergies/Adverse Reactions: Patient Allergies Penicillins Allergy (Verified 04/30/21 09:38) Hives Height: 1.57 m Weight: 69.763 kg Patient Problems: Current Active Problems Localized swelling, mass or lump of neck (Acute) Abscess of skin or subcutaneous tissue (Acute) - VTE Risk Labs: VTE Related Lab Results Hgb 12.8 g/dL (12.2-16.2) 10/14/21 06:21 Hct 39.5 % (37.0-47.0) 10/14/21 06:21 Plt Count 320 K/mm3 (142-424) 10/14/21 06:21 BUN 10 mg/dl (7-17) 10/14/21 06:21 Creatinine 0.40 mg/dl (0.52-1.04) L 10/14/21 06:21 Estimated Creat Clear 63 mL/min (50-200) 10/14/21 06:21 - Prophylaxis VTE Prophylaxis Ordered?: Yes Types of VTE Prophylaxis: TEDS Knee High Location of Applied Device: Bilateral Lower Extremeties
--- NOTE | 2021-10-14 07:49 | HMH.PHACONS ---
- Pharmacy Consult Date: 10/14/21 Time: 07:49 Referring provider: DR. KRAFT Reason for Consult:: VANCOMYCIN DOSING Allergies and ADEs:: Allergies Allergy/AdvReac Type Severity Reaction Status Date / Time Penicillins Allergy Hives Verified 04/30/21 09:38 Home Medications:: Home Medications Medication Instructions Recorded Confirmed Type aspirin 81 mg tablet,delayed 81 mg PO ONCE 09/07/17 10/13/21 History release metformin 500 mg tablet 500 mg PO DAILY 30 Days #30 09/07/17 10/13/21 History metoprolol tartrate 100 mg tablet 100 mg PO BID 90 Days #180 09/07/17 10/13/21 History Amlodipine Besylate 5 mg PO DAILY 07/13/18 10/13/21 History Rosuvastatin Calcium 20 mg PO DAILY 07/13/18 10/13/21 History dicyclomine 10 mg capsule 10 mg PO TID 90 Days #270 cap 09/12/18 10/13/21 History triamterene 37.5 1 tab PO DAILY tab 08/15/19 10/13/21 History mg-hydrochlorothiazide 25 mg tablet Albuterol Sulfate [Albuterol 2 puffs IH Q6HP PRN 30 Days #1 09/01/20 10/13/21 Rx Sulfate Hfa] hfa.aer.ad lisinopril 40 mg tablet 20 mg PO DAILY 90 Days #45 tab 04/30/21 10/13/21 History Oxybutynin Chloride See Rx Instructions .ROUTE .COMPLEX 10/13/21 10/13/21 History estradioL [Estradiol] 1 mg PO DAILY 10/13/21 10/13/21 History Height: 1.57 m Weight: 69.763 kg Laboratory Results:: Laboratory Results - last 24 hr 10/13/21 19:36: WBC 12.7 H, RBC 4.71, Hgb 14.2, Hct 44.1, MCV 93.8, MCH 30.1, MCHC 32.2, RDW 14.0, Plt Count 380, MPV 7.5, Neut % (Auto) 77.1, Lymph % (Auto) 14.9, [place] % (Auto) 3.9, Eos % (Auto) 1.8, Baso % (Auto) 2.5 H, Neut # (Auto) 9.8 H, Lymph # (Auto) 1.9, [place] # (Auto) 0.5, Eos # (Auto) 0.2, Baso # (Auto) 0.3 H, ESR 39 H 10/13/21 19:36: Sodium 141, Potassium 2.9 L*, Chloride 102, Carbon Dioxide 30, Anion Gap 11.9, BUN 12, Creatinine 0.50 L, Estimated Creat Clear 64, Estimated GFR 125, Est GFR ( Amer) 151, Glucose 110 H, Calcium 9.6, Total Bilirubin 0.2, AST 21, ALT 13, Alkaline Phosphatase 97, C-Reactive Protein 60.5 H, Total Protein 8.4 H, Albumin 4.3, Globulin 4.1 H, Albumin/Globulin Ratio 1.0 L, Procalcitonin 0.043 10/13/21 22:00: Lactate 1.4 10/13/21 22:19: SARS-CoV-2 (PCR) Not detected, Influenza A Untype (PCR) Not detected, Influenza Type B (PCR) Not detected 10/14/21 06:08: POC Glucose 99 10/14/21 06:21: WBC 10.9 H, RBC 4.23, Hgb 12.8, Hct 39.5, MCV 93.4, MCH 30.3, MCHC 32.5, RDW 14.0, Plt Count 320, MPV 7.4, Neut % (Auto) 74.4, Lymph % (Auto) 17.4, [place] % (Auto) 6.1, Eos % (Auto) 1.4, Baso % (Auto) 0.7, Neut # (Auto) 8.1 H, Lymph # (Auto) 1.9, [place] # (Auto) 0.7, Eos # (Auto) 0.2, Baso # (Auto) 0.1 10/14/21 06:21: Sodium 139, Potassium 3.2 L, Chloride 106, Carbon Dioxide 27, Anion Gap 9.2, BUN 10, Creatinine 0.40 L, Estimated Creat Clear 63, Estimated GFR 161, Est GFR ( Amer) 195 D, Glucose 114 H, Calcium 8.9 Medical History: Reports:: Diabetes Mellitus Type 1, Diabetes Mellitus Type 2, Gastroesophageal Reflux Disease(GERD), Hyperlipidemia, Hypertension, Migraine Denies:: Internal Pacemaker, Lung Disease, Seizures Assessment and Plan - Assessment and plan all Dx Assessment and Plan for all problems:: Age: 61 yo Serum creatinine: 1 mg/dL Height: 61.8 Inches Weight (kg): 69.8 Assessment: IBW (kg): 49.64 Dosing wt(kg): 69.8 Estimated Creatinine clearance (ml/min): 45.1 CRCL method: Cockcroft and Gault using ibw(default). Drug selected: Vancomycin Loading dose (mg): 0 Vd (liters): 55.8 (factor used: 0.8 L/kg) Andrew (hr-1): 0.042 Half life (hrs): 16.50 Recommended dose: 1250 mg Interval: 24 hrs Infusion time (hrs): 2.0 Predicted peak (mcg/mL): 33.8 Predicted trough (mcg/mL): 13.42 Total body weight is being used for vancomycin dosing. Recommendations: Give Vancomycin 1250 mg q 24 hrs with an expected Cpeak of 33.8 mcg/ml and an expected Ctrough of 13.42 mcg/ml. ----Germaineo on
[2021-10-14 08:00] VITALS: BP 129/63; PULSE 78; RESP 16; TEMP 36.6; O2SAT 97
--- NOTE | 2021-10-14 08:14 | HMH.PHAINT ---
MEDICATION RECONCILIATION COMPLETED ON PATIENT USING EXTERNAL FILL HISTORY FROM PHARMACY. -MINGO MCHUGH, MARIA LD
[2021-10-14 11:06] LABS: POC Glucose,Bedside 98 (70-110)
--- NOTE | 2021-10-14 15:46 | HMH.ACPN2 ---
Internal Medicine - PN: Subj *Date: 10/14/21 *Time: 15:46 Interval history: 61 y.o. female admitted from ER last evening with tender mass of the right neck area. Hisory of previous throat infection. See CT report. Exam Vital signs and Labs for Last 24 Hours: Temp Pulse Resp BP Pulse Ox 97.8 F 78 16 129/63 97 10/14/21 08:00 10/14/21 08:00 10/14/21 08:00 10/14/21 08:00 10/14/21 08:00 Laboratory Results - last 24 hr 10/13/21 19:36: WBC 12.7 H, RBC 4.71, Hgb 14.2, Hct 44.1, MCV 93.8, MCH 30.1, MCHC 32.2, RDW 14.0, Plt Count 380, MPV 7.5, Neut % (Auto) 77.1, Lymph % (Auto) 14.9, [place] % (Auto) 3.9, Eos % (Auto) 1.8, Baso % (Auto) 2.5 H, Neut # (Auto) 9.8 H, Lymph # (Auto) 1.9, [place] # (Auto) 0.5, Eos # (Auto) 0.2, Baso # (Auto) 0.3 H, ESR 39 H 10/13/21 19:36: Sodium 141, Potassium 2.9 L*, Chloride 102, Carbon Dioxide 30, Anion Gap 11.9, BUN 12, Creatinine 0.50 L, Estimated Creat Clear 64, Estimated GFR 125, Est GFR ( Amer) 151, Glucose 110 H, Calcium 9.6, Total Bilirubin 0.2, AST 21, ALT 13, Alkaline Phosphatase 97, C-Reactive Protein 60.5 H, Total Protein 8.4 H, Albumin 4.3, Globulin 4.1 H, Albumin/Globulin Ratio 1.0 L, Procalcitonin 0.043 10/13/21 22:00: Lactate 1.4 10/13/21 22:19: SARS-CoV-2 (PCR) Not detected, Influenza A Untype (PCR) Not detected, Influenza Type B (PCR) Not detected 10/14/21 06:08: POC Glucose 99 10/14/21 06:21: WBC 10.9 H, RBC 4.23, Hgb 12.8, Hct 39.5, MCV 93.4, MCH 30.3, MCHC 32.5, RDW 14.0, Plt Count 320, MPV 7.4, Neut % (Auto) 74.4, Lymph % (Auto) 17.4, [place] % (Auto) 6.1, Eos % (Auto) 1.4, Baso % (Auto) 0.7, Neut # (Auto) 8.1 H, Lymph # (Auto) 1.9, [place] # (Auto) 0.7, Eos # (Auto) 0.2, Baso # (Auto) 0.1 10/14/21 06:21: Sodium 139, Potassium 3.2 L, Chloride 106, Carbon Dioxide 27, Anion Gap 9.2, BUN 10, Creatinine 0.40 L, Estimated Creat Clear 63, Estimated GFR 161, Est GFR ( Amer) 195 D, Glucose 114 H, Calcium 8.9 10/14/21 10:59: POC Glucose 98 I & O for Last 24 hours: Intake & Output 10/12/21 10/13/21 10/14/21 10/15/21 11:59 11:59 11:59 11:59 Intake Total 0 / 0 Balance 0 / 0 Weight 153 lb 12.8 oz - Constitutional no acute distress - *Routine HEENT Exam Head: Present: normocephalic Eye: Present: EOMI, PERRL ENT: Present: mucous membranes moist - *Routine Neck Exam Present: lymphadenopathy, tenderness, swelling (right neck), trachea midline - *Routine Respiratory Exam Present: CTA bilaterally - *Routine Cardiovascular Exam Present: RRR - *Routine Abdominal Exam Present: soft, normoactive bowel sounds. Absent: tenderness - *Routine Extremities Exam Absent: cyanosis, clubbing, edema - *Routine Skin Exam Present: warm. Absent: rash - *Routine Neurological Exam Present: alert, oriented X3 Assessment and Plan (1) Abscess of skin or subcutaneous tissue Status: Acute Qualifiers: Site of cutaneous abscess: neck Qualified Code(s): L02.11 - Cutaneous abscess of neck Category: Medical Code(s): L02.91 - Cutaneous abscess, unspecified (2) Localized swelling, mass or lump of neck Status: Acute Category: Medical Code(s): R22.1 - Localized swelling, mass and lump, neck - Assessment and plan all Dx Assessment and Plan for all problems:: Dr. Whitaker spoke with Dr. Abel Victor, ENT. Dr. Victor will see her in his office in [place] tomorrow afternoon. We will continue IV antibiotics overnight and plan to discharge in the morning so she may travel to see ENT.
--- NOTE | 2021-10-14 15:56 | HMH.HP ---
*Admission Date: 10/13/21 *Chief complaint: right neck mass *History of present illness: Patient is a very pleasant 61-year-old female. She states that a little bit over 2 weeks ago she had developed a sore throat. She has had some tenderness in the right neck area distally near the trapezius. This has been progressive with some radiation of pain. She presented to the urgent treatment center last night and was sent to the emergency department where she was seen and evaluated. She underwent CT scan which revealed peripherally enhancing cystic-appearing mass in the right supraclavicular tissues between the trapezius muscle and paraspinal muscles. She was admitted for inpatient management. Surgical consultation was obtained. (above as per Dr. Barboza) Further to above history, the patient did not actually notice a mass until the weekend and it has gradually gotten larger and more tender. One CT scan alluded to an abscess while the other CT mentioned a lymph node versus a neoplastic process. She was admitted and started on IV antibiotics with a surgery consult. [facility] History I have reviewed the patient's past medical history: Yes Medical History: Reports:: Diabetes Mellitus Type 1, Diabetes Mellitus Type 2, Gastroesophageal Reflux Disease(GERD), Hyperlipidemia, Hypertension, Migraine Denies:: Internal Pacemaker, Lung Disease, Seizures *Have you ever received a pneumonia vaccine?: Yes *Have you received a flu vaccine this season?: Yes Other Medical History: Reports: Anemia, Arthritis Other Surgeries: Yes: Appendectomy, Colonoscopy, Hysterectomy-Total, Tubal Ligation, Other (spinal stenosis surgery). No: Pacemaker Amputation: No Fractures: No - *Social History Last grade of school completed: Some college Smoking Status: Current every day smoker Tobacco Type: cigarettes # Packs/Day (cigarettes): 1 Alcohol Intake: current Alcohol Intake Frequency:: a few times a month *Occupational Status:: employed Housing: house Household Members: family *Travel in the last 8 weeks: None Family Hx:: Diabetes, Cancer, Hypertension Review of Systems - Constitutional Denies chills, Denies fever(s) - Eyes Denies blurry vision, Denies double vision - ENT Reports sore throat (resolved), Denies nasal congestion - *Cardiovascular Denies chest pain, Denies shortness of breath - *Respiratory Denies cough, Denies shortness of breath - *Gastrointestinal Denies abdominal pain, Denies loose stools, Denies nausea, Denies vomiting - *Genitourinary Denies difficulty urinating, Denies painful urination - *Musculoskeletal Denies joint pain - *Neurologic Reports headache(s), Denies dizziness Meds Home Medications Medication Instructions Recorded Confirmed Type aspirin 81 mg tablet,delayed 81 mg PO DAILY 09/07/17 10/14/21 History release metformin 500 mg tablet 500 mg PO DAILY 30 Days #30 09/07/17 10/13/21 History metoprolol tartrate 100 mg tablet 100 mg PO BID 90 Days #180 09/07/17 10/13/21 History Amlodipine Besylate 5 mg PO DAILY 07/13/18 10/13/21 History Rosuvastatin Calcium 20 mg PO HS 07/13/18 10/14/21 History dicyclomine 10 mg capsule 20 mg PO QIDP PRN 90 Days #270 cap 09/12/18 10/14/21 History triamterene 37.5 1 tab PO DAILY tab 08/15/19 10/13/21 History mg-hydrochlorothiazide 25 mg tablet Albuterol Sulfate [Albuterol 2 puffs IH Q6HP PRN 30 Days #1 09/01/20 10/13/21 Rx Sulfate Hfa] hfa.aer.ad lisinopril 40 mg tablet 20 mg PO BID 90 Days #45 tab 04/30/21 10/14/21 History Oxybutynin Chloride 5 mg PO TID 10/13/21 10/14/21 History estradioL [Estradiol] 1 mg PO DAILY 10/13/21 10/13/21 History Allergies Allergy/AdvReac Type Severity Reaction Status Date / Time Penicillins Allergy Hives Verified 04/30/21 09:38 Exam Vital signs and Labs for Last 24 Hours: Temp Pulse Resp BP Pulse Ox 97.8 F 78 16 129/63 97 10/14/21 08:00 10/14/21 08:00 10/14/21 08:00 10/14/21 08:00 10/14/21 08:00 Laboratory Results
[2021-10-14 16:00] VITALS: BP 117/70; PULSE 90; RESP 18; TEMP 37.2; O2SAT 97
[2021-10-14 17:15] LABS: POC Glucose,Bedside 95 (70-110)
--- NOTE | 2021-10-14 18:52 | PC.NURSE ---
Pt has c/o neck pain x2 this shift and has been medicated per MAR w/ favorable results upon reassessment. K pad applied to pt's neck w/ favorable results as well. Pt has ambulated independently in her. Pt and pt's son has been updated on POC t/o this shift. No other acute changes.
[2021-10-14 20:00] VITALS: BP 114/65; PULSE 104; RESP 16; TEMP 36.6; O2SAT 95
[2021-10-15 04:00] VITALS: BP 127/73; PULSE 100; RESP 18; TEMP 36.7; O2SAT 94
--- NOTE | 2021-10-15 04:12 | PC.NURSE ---
Pt has c/o discomfort to (R) side of neck. No changes since prior assessment. Medicated per aug. Has used K-Pad this shift. Pt states it has helped with pain. VSS. Pt has ambulated to BR without difficulty. No other concerns. Will continue to monitor.
[2021-10-15 05:00] VITALS: BMI 28.8
[2021-10-15 06:48] LABS: POC Glucose,Bedside 102 (70-110)
[2021-10-15 06:48] LABS: POC Glucose,Bedside 154 (70-110)
[2021-10-15 08:00] VITALS: BP 147/87; PULSE 109; RESP 22; TEMP 36.5; O2SAT 95
--- NOTE | 2021-10-15 08:14 | P.PN_ITS ---
Internal Medicine - PN: Subj *Date: 10/15/21 *Time: 08:14 Interval history: Patient is feeling a little bit better today. She thinks the mass in her neck may be slightly smaller but it is still very painful. She was able to rest some last night and is able to eat. Exam Vital signs and Labs for Last 24 Hours: Temp Pulse Resp BP Pulse Ox 98.0 F 100 H 18 127/73 94 L 10/15/21 04:00 10/15/21 04:00 10/15/21 04:00 10/15/21 04:00 10/15/21 04:00 Laboratory Results - last 24 hr 10/14/21 10:59: POC Glucose 98 10/14/21 17:08: POC Glucose 95 10/14/21 19:52: POC Glucose 154 H 10/15/21 05:55: POC Glucose 102 I & O for Last 24 hours: Intake & Output 10/12/21 10/13/21 10/14/21 10/15/21 11:59 11:59 11:59 11:59 Intake Total 0 / 0 360 / 360 Balance 0 / 0 360 / 360 Weight 153 lb 12.8 oz 157 lb 0.008 oz - Constitutional no acute distress - *Routine Neck Exam Comments: Supraclavicular mass may be slightly smaller today but is still extremely tender - *Routine Respiratory Exam Present: CTA bilaterally - *Routine Cardiovascular Exam Present: RRR - *Routine Abdominal Exam Present: soft, normoactive bowel sounds. Absent: tenderness - *Routine Extremities Exam Absent: cyanosis, clubbing, edema - *Routine Skin Exam Present: warm. Absent: rash - *Routine Neurological Exam Present: alert, oriented X3 Assessment and Plan (1) Abscess of skin or subcutaneous tissue Status: Acute Qualifiers: Site of cutaneous abscess: neck Qualified Code(s): L02.11 - Cutaneous abscess of neck Category: Medical Code(s): L02.91 - Cutaneous abscess, unspecified (2) Localized swelling, mass or lump of neck Status: Acute Category: Medical Code(s): R22.1 - Localized swelling, mass and lump, neck (3) Hypertension Status: Chronic Category: Medical Code(s): I10 - Essential (primary) hypertension (4) Hyperlipidemia Status: Chronic Category: Medical Code(s): E78.5 - Hyperlipidemia, unspecified (5) Type 2 diabetes mellitus Status: Chronic Qualifiers: Diabetes mellitus half-way insulin use: without half-way use Diabetes mellitus complication status: without complication Qualified Code(s): E11.9 - Type 2 diabetes mellitus without complications Category: Medical Code(s): E11.9 - Type 2 diabetes mellitus without complications - Assessment and plan all Dx Assessment and Plan for all problems:: Patient will be discharged today and will travel to [place] to see Dr. Victor in his office for further evaluation and treatment of her neck mass.
--- NOTE | 2021-10-15 10:37 | PC.NURSE ---
Discharge packet discussed with patient, answered all questions. Pt getting ready, called son for black pickler.
--- NOTE | 2021-10-15 10:47 | HMH.DCSUM ---
General - General Admission date:: 10/14/21 Discharge date: 10/15/21 HPI HPI: Patient is a very pleasant 61-year-old female. She states that a little bit over 2 weeks ago she had developed a sore throat. She has had some tenderness in the right neck area distally near the trapezius. This has been progressive with some radiation of pain. She presented to the urgent treatment center last night and was sent to the emergency department where she was seen and evaluated. She underwent CT scan which revealed peripherally enhancing cystic-appearing mass in the right supraclavicular tissues between the trapezius muscle and paraspinal muscles. She was admitted for inpatient management. Surgical consultation was obtained. (above as per Dr. Barboza) Further to above history, the patient did not actually notice a mass until the weekend and it has gradually gotten larger and more tender. One CT scan alluded to an abscess while the other CT mentioned a lymph node versus a neoplastic process. She was admitted and started on IV antibiotics with a surgery consult. Hospital Course Hospital Course: The patient was seen in consultation by Dr. Barboza and he felt the patient would need an ENT consult. There was not an ENT available to consult at [facility], so Dr. Whitaker contacted Dr. Victor. He agreed to see the patient in his office on 10/15/2021. She was kept overnight for continued antibiotics and was discharged on 10/15/2021 so that she could go to [place] and be seen by Dr. Victor. Her white blood cell count did improve on antibiotics and her potassium improved as well. Objective Vital signs: Temp Pulse Resp BP Pulse Ox 97.7 F 109 H 22 147/87 H 95 10/15/21 08:00 10/15/21 08:00 10/15/21 08:00 10/15/21 08:00 10/15/21 08:00 Narrative: - Constitutional no acute distress - *Routine HEENT Exam Head: Present: normocephalic Eye: Present: EOMI, PERRL ENT: Present: mucous membranes moist - *Routine Neck Exam Present: lymphadenopathy, swelling, trachea midline Comments: large tender supraclavicular mass - *Routine Respiratory Exam Present: CTA bilaterally - *Routine Cardiovascular Exam Present: RRR - *Routine Abdominal Exam Present: soft, normoactive bowel sounds. Absent: tenderness - *Routine Rectal Exam Rectal:: deferred - *Routine Genitalia Exam Genitalia:: deferred - *Routine Extremities Exam Absent: cyanosis, clubbing, edema - *Routine Skin Exam Present: warm. Absent: rash - *Routine Neurological Exam Present: alert, oriented X3 Results Labs on day of discharge: Labs from last 24 hours 10/15/21 10/14/21 10/14/21 05:55 19:52 17:08 POC Glucose 102 154 H 95 10/14/21 10:59 POC Glucose 98 DS: Diagnosis - Discharge Diagnosis (1) Abscess of skin or subcutaneous tissue Status: Acute (2) Localized swelling, mass or lump of neck Status: Acute (3) Hypertension Status: Chronic (4) Hyperlipidemia Status: Chronic (5) Type 2 diabetes mellitus Status: Chronic Discharge Plan - Patient Discharge Instructions ACTIVITY: Limited activity DIET: continue same diet Additional Instructions: To go to Dr. Victor's office for ENT evaluation at 2:00 PM. Will discharge this AM. Patient Instructions: DI for Skin Abscess - Follow up Plan Follow up with: Mateusz Victor MD [Physician] - 10/15/21 3:00 pm [phone] [address] [facility] 5[address] ) Disposition: Xfer Other Condition at discharge:: Stable Home Medications: Home Medications Medication Instructions Recorded Confirmed Type aspirin 81 mg tablet,delayed 81 mg PO DAILY 09/07/17 10/14/21 History release metformin 500 mg tablet 500 mg PO DAILY 30 Days #30 09/07/17 10/13/21 History metoprolol tartrate 100 mg tablet 100 mg PO BID 90 Days #180 09/07/17 10/13/21 History Amlodipine Besylate [Amlodipine 5 mg PO DAILY 07/13/18 10/13/21 Histor
--- NOTE | 2021-10-18 15:31 | CARE MANAGER ---
Spoke with patient post-discharge from [facility], patient states she is in [place] at this time with Dr. Mariscal. She was sent to see him after discharge from [facility].
== END 2021-10-15 11:08 | disposition home or self-care (01) ==
LOC: UTC 17:18 → ER 17:43 → 2ND 22:18
PROVIDERS: Emergency Medicine; Admitting Provider Family Medicine; Emergency Provider Emergency Medicine; PCP Family Medicine; Visit Provider Family Medicine
DX: R22.1 Localized swelling, mass and lump, neck (principal); Z20.822 Contact with and (suspected) exposure to COVID-19; L02.11 Cutaneous abscess of neck; K21.9 Gastro-esophageal reflux disease without esophagitis; E78.5 Hyperlipidemia, unspecified; E11.9 Type 2 diabetes mellitus without complications; Z79.84 Long term (current) use of oral hypoglycemic drugs; G43.909 Migraine, unspecified, not intractable, without status migrainosus; F17.210 Nicotine dependence, cigarettes, uncomplicated; I10 Essential (primary) hypertension; Z79.890 Hormone replacement therapy; Z79.899 Other long term (current) drug therapy
CPT/HCPCS: 36415; 70491; 71260; 80048; 80053; 82962; 83605; 84145; 85025; 85651; 86140; 87040; 96375; 99285; C9803; G0378; J3370; Q9967; U0003; U0005

== ENCOUNTER → 2022-06-16 16:19 | Outpatient (CLI) | payer BC, SELFPAY ==
--- NOTE | 2022-06-16 16:19 | MM_ITS ---
PROCEDURE INFORMATION: Exam: MG Bilateral Screening 3D Mammography Exam date and time: 06/16/2022 4:12 PM Age: 61 years old Clinical indication: Screening. Her sister had breast cancer in her 50s and a maternal cousin had breast cancer. TECHNIQUE: Imaging protocol: Bilateral Screening tomosynthesis and 2D mammography including computer-aided detection (CAD) when performed. COMPARISON: 1. MG MM DIG SCREENING MAMM BI W/CAD 04/30/2021 8:31 AM 2. MG MM DIG SCREENING MAMM BI W/CAD 01/17/2020 9:41 AM 3. MG DIG MAMM-SCREEN XENIA 12/04/2018 4:19 PM 4. MG SCBI MM Dig screening mamm BI w/CAD 11/20/2017 11:09 AM FINDINGS: MAMMOGRAPHY: Breast composition: The breasts are heterogeneously dense, which may obscure small masses. Mass: None. Architectural distortion: None. Calcifications: No suspicious calcifications. Asymmetric density: None. Skin thickening: None. Axillary adenopathy: None. IMPRESSION: No mammographic evidence of malignancy. Annual screening is recommended unless otherwise clinically indicated. Given the reported risk factors coupled with the patient's breast density, a breast cancer risk assessment may prove useful for further evaluation. ASSESSMENT: BI-RADS Category 1: Negative
== END ==
PROVIDERS: PCP Family Medicine; Visit Provider Nurse Practitioner Obstetrics & Gynecology
DX: Z12.31 Encounter for screening mammogram for malignant neoplasm of breast (principal)
CPT/HCPCS: 77063; 77067

== ENCOUNTER 2023-06-27 16:47 | Outpatient (CLI) | payer BC, SELFPAY ==
--- NOTE | 2023-06-27 16:48 | MM_ITS ---
PROCEDURE INFORMATION: Exam: MG Bilateral Screening 3D Mammography Exam date and time: 06/27/2023 4:36 PM Age: 62 years old Clinical indication: Screening mammogram TECHNIQUE: Imaging protocol: Bilateral Screening tomosynthesis and 2D mammography including computer-aided detection (CAD) when performed. COMPARISON: 1. MG MM DIG SCREENING MAMM BI W/CAD 06/16/2022 4:12 PM 2. MG MM DIG SCREENING MAMM BI W/CAD 04/30/2021 8:31 AM 3. MG MM DIG SCREENING MAMM BI W/CAD 01/17/2020 9:41 AM 4. MG DIG MAMM-SCREEN XENIA 12/04/2018 4:19 PM FINDINGS: MAMMOGRAPHY: Breast composition: There are scattered areas of fibroglandular density. Mass: None. Architectural distortion: No new or suspicious architectural distortion. Calcifications: No new or suspicious calcifications are present Asymmetric density: No new or suspicious asymmetric density is present Skin thickening: None. Axillary adenopathy: None. IMPRESSION: No mammographic evidence of malignancy. Recommend annual screening mammography unless otherwise clinically indicated. ASSESSMENT: BI-RADS category 1: Negative
== END 2023-06-27 23:59 ==
LOC: RAD 16:48
PROVIDERS: PCP Family Medicine; Visit Provider Nurse Practitioner Obstetrics & Gynecology
DX: Z12.31 Encounter for screening mammogram for malignant neoplasm of breast (principal)
CPT/HCPCS: 77063; 77067

== ENCOUNTER 2023-08-10 08:45 | Outpatient (CLI) | payer BC, SELFPAY ==
--- NOTE | 2023-08-10 08:52 | XR_ITS ---
FINAL REPORT TECHNIQUE: Bone densitometry calculations of the lumbar spine and left hip were obtained. CLINICAL HISTORY: OSTEOPENIA COMPARISON: None FINDINGS: Using L1-4, the bone mineral density of the spine is 1.789 g/cm2, corresponding to T-score of 6.7 and a Z score of 8.5. This is within the range of normal. Using the left hip, the bone mineral density of the femoral neck is 0.939 g/cm2, corresponding to a T-score of 0.8 and a Z-score of 2.3. This is within the range of normal. NOTE: T-score: Standard deviation compared with peak bone mass of young adult mean. *Following the recommendations of the International Society of Bone densitometry, classification of hip BMD is based on the lower of two T-scores; total hip or femoral neck. IMPRESSION: 1. Bone mineral density of the lumbar spine within the range of normal. 2. Bone mineral density of the left femoral neck within the range of normal. Reviewed, Interpreted and Dictated by Velia Garcia MD Transcribed by Lucero Barrow Authenticated and [facility]
== END 2023-08-10 23:59 ==
LOC: RAD 08:46
PROVIDERS: PCP Family Medicine; Visit Provider Family Medicine
DX: Z13.820 Encounter for screening for osteoporosis (principal); Z78.0 Asymptomatic menopausal state; M85.89 Other specified disorders of bone density and structure, multiple sites
CPT/HCPCS: 77080

== ENCOUNTER 2023-10-24 10:41 | Day surgery (SDC) | payer BC, SELFPAY ==
[2023-10-19 13:58] VITALS: BMI 28.7
[2023-10-24 11:08] VITALS: BP 113/71; PULSE 66; RESP 18; TEMP 36.7; O2SAT 93; BMI 28.7
[2023-10-24] MEDS: LACTATED RINGERS 1000ML 1,000 ML 100 ML IV (11:14)
[2023-10-24 11:18] LABS: POC Glucose,Bedside 107 (70-110)
--- NOTE | 2023-10-24 11:39 | HMH.SCOPE ---
Procedure: Date: 10/24/23 Patient Date of :: 1960 Procedure Performed:: Colonoscopy Indications:: Screening History of colon polyp Performing Provider:: Juancarlos Chow MD Referring Provider:: . Sedation:: Monitored anesthesia care Procedure:: After informed consent was obtained the patient was taken to the endoscopy suite. Sedation ensued after the patient was transferred to the left lateral decubitus position. Pulse, blood pressure, and oxygen saturation were monitored throughout the procedure. Digital rectal exam revealed no significant abnormality. The colonoscope was placed in position. The entire colon was evaluated. The colonoscope was carefully removed and the patient was transferred to recovery in stable condition. Please see findings and specimens below for detail. Findings:: Bowel preparation moderate Profound tortuosity Severe spasticity/lack of relaxation Significant sigmoid diverticulosis Specimens:: None Recommendations:: Likely repeat colonoscopy in 3-5 years secondary to history of polyps, profound tortuosity, and severe spasticity/lack of relaxation. Consider barium enema in near future secondary to above. Complications:: No immediate Estimated blood obtained (mL): 0 Colonoscopy Component Colonoscopy Component Was a colonoscopy performed during today's procedure?: Yes Recommended follow up colonoscopy of at least 10 years?: No If no, follow up colonoscopy recommended in ___ years?: (See above) Reason for not recommending >/= 10 yr follow-up interval?: (See above)
--- NOTE | 2023-10-24 11:44 | P.PNANES_ITS ---
[facility] Disclaimer: The information contained in this section may have been updated after the patient was seen, as this information can be updated by other users. Medical History Migraine History of gastroesophageal reflux (GERD) History of diverticulitis Hyperlipidemia Hypertension Surgical History History of appendectomy History of back surgery History of hysterectomy Family History Sister Cancer, Onset Age: 70 Breast Other Diabetes Hypertension Social History Smoking Status: Former smoker tobacco type: cigarettes packs per day: 1 alcohol intake: never substance use type: denies use current occupational status: employed Travel in the last 8 weeks: None household members: family housing: house caffeine: Yes [facility] Anesthesia Checklist Patient Identification Patient Identification: Arm Band Structural Data Admitted From: Home Planned Operative Procedure/s: Colonoscopy Consent for Planned Operative Procedure(s) Verified: Yes Verified Documents: Surgical Consent and History and Physical NPO Status Verified Time NPO: 00:00 Additional verifications Anesthesia Reactions: No Airway Assessment Mallampati Score:: Class II C-Spine Mobility Assessed: Yes TMJ Mobility Assessed: Yes Dentition: Good Dentition Neurological Assessment Level of Consciousness: Awake, Alert and Appropriate Anesthesia Plan Anesthesia Risk discussed: Yes Anesthesia Plan: Verified ASA Class: II Anesthesia Type: MAC
[2023-10-24 11:46] VITALS: O2SAT 93
[2023-10-24 12:25] VITALS: BP 81/41; PULSE 59; RESP 16; TEMP 36.3; O2SAT 94
[2023-10-24 12:35] VITALS: BP 111/69; PULSE 60; RESP 16; O2SAT 96
[2023-10-24 12:45] VITALS: BP 118/74; PULSE 62; RESP 16; O2SAT 98
[2023-10-24 12:55] VITALS: BP 123/73; PULSE 61; RESP 16; O2SAT 98
== END 2023-10-24 13:02 | disposition home or self-care (01) ==
PROVIDERS: PCP Family Medicine; Visit Provider Surgery
PROC: 0DJD8ZZ Inspection of Lower Intestinal Tract, Via Natural or Artificial Opening Endoscopic (ICD-10-PCS; CPT 45378; principal; 2023-10-24 11:30)
DX: Z12.11 Encounter for screening for malignant neoplasm of colon (principal); Z86.010 Personal history of colon polyps; K57.30 Diverticulosis of large intestine without perforation or abscess without bleeding; K56.2 Volvulus; Z79.899 Other long term (current) drug therapy
CPT/HCPCS: 45378; 82962

== ENCOUNTER 2024-03-05 17:14 | Emergency (ER) | payer BC, SELFPAY ==
[2024-03-05 17:36] VITALS: BP 158/81; PULSE 86; RESP 16; TEMP 37; O2SAT 95; BMI 30.9
--- NOTE | 2024-03-05 17:41 | EXP.UTC ---
Discharge Plan Disposition Patient Disposition: Home, Self-Care Condition: Good Prescriptions Prescriptions: New azithromycin [Zithromax Z-Dean] 250 mg tablet See Rx Instructions .ROUTE .COMPLEX 5 Days Qty: 6 0RF Rx Instructions: For 250 mg dose pack: take 500 mg today (day 1), then 250 mg for 4 days (days 2-5) benzonatate 100 mg capsule 100 mg PO TID PRN (Reason: cough) Qty: 30 0RF methylprednisolone [Medrol (Dean)] 4 mg tablets,dose pack See Rx Instructions .Route .COMPLEX 6 Days Qty: 21 0RF Rx Instructions: taper pack; guaifenesin [Mucinex] 600 mg tablet extended release 12hr 600 mg PO BID PRN (Reason: cough) Qty: 20 0RF No Action dicyclomine 10 mg capsule 20 mg PO QIDP PRN (Reason: STOMACH CRAMPS) 90 Days Qty: 270 metoprolol tartrate 100 mg tablet 100 mg PO BID 90 Days Qty: 180 Patient Comments: aspirin 81 mg tablet,delayed release (DR/EC) 81 mg PO DAILY metformin 500 mg tablet 500 mg PO DAILY 30 Days Qty: 30 Patient Comments: lisinopril 40 mg tablet 20 mg PO BID 90 Days Qty: 45 Patient Comments: triamterene-hydrochlorothiazid 37.5-25 mg tablet 1 tab PO DAILY estradiol 1 mg tablet 1 mg PO DAILY Qty: 90 4RF amlodipine 5 MG tablet 5 mg PO DAILY rosuvastatin 20 MG tablet 20 mg PO HS albuterol sulfate 8.5 GM HFA aerosol inhaler 2 puffs inhalation Q6HP PRN (Reason: Shortness Of Breath) 30 Days Qty: 1 5RF oxybutynin chloride 5 mg tablet 5 mg PO TID Rx Instructions: TAKE 1 TABLET BY MOUTH THREE TIMES DAILY FOR BLADDER Referrals Follow up/Referrals: Dwayne Whitaker MD [Primary Care Provider] - See instructions Activity Restrictions/Add. Instructions Additional Instructions/Restrictions: *Monitor Temp, Over the counter Motrin or Tylenol as directed/as needed Tylenol every 4 hours and Motrin every 6 hours (as long as your family doctor has told you that you can take it) for fever or pain. and straight to ER if unable to lower temp less than 101.0 after medication given *Warm salt water gargles may help to soothe the throat *Throat Lozenges? *Warm fluids like tea with honey may help to soothe the throat? *Sleep elevated *Humidifier/Vaporizer Take medication as prescribed Follow up IMMEDIATELY for new or worsening symptoms or no Noticeable improvement over the next 48-72 hours. 911 for difficulty breathing or swallowing You were tested for today for COVID19 your test result should be back in the next 24 hours, you may check for your results on the [facility] [employer] [facility] Portal Clinical Impressions Clinical Impression: Sinusitis Instructions Patient Instructions: DI for Sinusitis, Sinusitis Print Language Print Language: Slovak Discharge ED Provider: Aura Valencia [facility] HPI General Stated complaint: ramesh, cough, [place] Mode of Arrival: Ambulatory Source of Information: Patient Limitations: No Limitations Time Seen by Provider: 03/05/24 17:41 Description of Symptoms (Recalled from Triage Doc. by RN): Patient complaint of cough, drainage, chest congestion, headache, wheezing, body aches, and chills. HEENT Symptoms (Recalled from RN notes): Yes Resp Symptoms (Recalled from RN notes): No Skin Symptoms (Recalled from RN notes): No MS Symptoms (Recalled from RN notes): No Functional Status (Recalled from RN notes): wnl History of Present Illness Provider Complaint: Patient states that she has been having sinus congestion and pressure, drainage in the back of her throat making her cough, feels like it is trying to move into her chest when she lays down the cough is worse, feeling achy and having chills States she has pressure behind her eyes and feels like she may have a bad sinus infection Related Data Home Medications ?Medication ?Instructions ?Recorded ?Confirmed aspirin 81 mg tablet,delayed 81 mg PO DAILY heart health 09/07/17 10/19/23 release metformin 500 mg tablet 500 mg PO DAILY Diabetes 30 days 09/07/17 10/19/23 ##30 metoprolol tartrate 100 mg tablet 100 mg PO BID Hypertension 90 days 09/07/17 10/19/23 ##180 amlodipine 5 mg tablet 5 mg PO DAILY Hypertension 07/13/18 10/19/23 rosuvastatin 20 mg tablet 20 mg PO HS Cholesterol 07/13/18 10/19/23 dicyclomine 10 mg capsule 20 mg PO QIDP PRN STOMACH CRAMPS 09/12/18 10/19/23 90 days #270 caps triamterene 37.5 1 tab PO DAILY Hypertension 08/15/19 10/19/23 mg-hydrochlorothiazide 25 mg tablet lisinopril 40 mg tablet 20 mg PO BID Hypertension 90 days 04/30/21 10/19/23 #45 tabs oxybutynin chloride 5 mg tablet 5 mg PO TID 10/19/23 10/19/23 Previous Rx's ?Medication ?Instructions ?Recorded albuterol sulfate 90 mcg/actuation 2 puffs inhalation Q6HP PRN 09/01/20 aerosol inhaler Shortness Of Breath 30 days ##1 estradiol 1 mg tablet 1 mg PO DAILY menopause #90 tabs 07/19/23 azithromycin 250 mg tablet See Rx Instructions PO .COMPLEX 5 03/05/24 (Zithromax Z-Dean) days #6 tabs benzonatate 100 mg capsule 100 mg PO TID PRN cough #30 caps 03/05/24 guaifenesin 600 mg tablet, 600 mg PO BID PRN cough #20 tabs 03/05/24 extended release 12 hr (Mucinex) methylprednisolone 4 mg tablets in See Rx Instructions .Route 03/05/24 a dose pack (Medrol (Dean)) .COMPLEX 6 days #21 tabs Allergies Allergy/AdvReac Type Severity Reaction Status Date / Time Penicillins Allergy Hives Verified 10/24/23 11:04 Worker's Comp Is this a Worker's Comp case?: No [facility] Disclaimer: The information contained in this section may have been updated after the patient was seen, as this information can be updated by other users. Medical History (Updated 03/05/24 @ 17:49 by Aura Valencia APRN) Migraine History of gastroesophageal reflux (GERD) History of diverticulitis Hyperlipidemia Hypertension Surgical History History of appendectomy History of back surgery History of hysterectomy Family History Sister Cancer, Onset Age: 70 Breast Other Diabetes Hypertension Social History Smoking Status: Former smoker tobacco type: cigarettes packs per day: 1 alcohol intake: never substance use type: denies use current occupational status: employed Travel in the last 8 weeks: None household members: family housing: house caffeine: Yes ROS Obtained: Yes All systems reviewed & no additional complaints except as documented and Yes Systems reviewed as appropriate & no additional complaints except as documented Constitutional Constitutional: Reports system reviewed and no additional complaints, except as documented, Reports as per HPI, Reports body ache, Reports chills and Reports headache(s) ENT Ears, Nose, Mouth, and Throat: Reports system reviewed and no additional complaints, except as documented, Reports as per HPI, Reports headache(s), Reports sinus pain and Reports sinus pressure Cardiovascular Cardiovascular: Reports system reviewed and no additional complaints, except as documented and Reports as per HPI Respiratory Respiratory: Reports system reviewed and no additional complaints, except as documented, Reports as per HPI, Denies shortness of breath, Reports chest congestion and Reports cough Gastrointestinal Gastrointestingal: Reports system reviewed and no additional complaints, except as documented and as per HPI Genitourinary Female Genitourinary: Reports system reviewed and no additional complaints, except as documented and Reports as per HPI Musculoskeletal Musculoskeletal: Reports system reviewed and no additional complaints, except as documented and Reports as per HPI Integumentary/Breasts Skin/Breast: Reports system reviewed and no additional complaints, except as documented and Reports as per HPI Neurologic Neurologic: Reports headache(s) Physical Exam General General appearance: alert and in no apparent distress ENT ENT exam: Present mucous membranes moist Expanded ENT Exam Nose exam: Present sinus tenderness Throat exam: Present other (PND noted) Respiratory Respiratory exam: Present normal lung sounds bilaterally; Absent respiratory distress or wheezes Cardiovascular Cardiovascular exam: Present regular rate, normal rhythm and normal heart sounds Neurological Exam Neurological exam: Present alert, oriented X3 and normal gait Medical Decision Making Medical Records Screening: Per USPSTF and CDC recommendations, given the prevalence of disease in our region, it is our hospital?s policy to screen for HIV and viral Hepatitis for all patients aged 18 and over and those with ongoing risk factors. Yang Inquiry Pt receiving controlled substance: No Yang was queried for this patient: No Vital Signs: 03/05/24 17:36 Temperature 98.6 F Temperature Source Oral Pulse Rate [Radial] 86 Respiratory Rate 16 Blood Pressure [Right Arm] 158/81 H Blood Pressure Mean [Right Arm] 106 Blood Pressure Source [Right Arm] Automatic Cuff Blood Pressure Position [Right Arm] Sitting 02 Sat by Pulse Oximetry 95 Oxygen Delivery Method Room Air Orders (Tests/Meds): ORDERS Category Date Time Status Covid-19 Nasal PCR ([facility]) Routine Lab 03/05/24 17:37 Ordered Medical Decision Narrative: Patient states that she is a diabetic but has taken steriods and zpack in the past without complications or reactions
[2024-03-05 17:59] VITALS: BP 158/81; PULSE 86; RESP 16; TEMP 37; O2SAT 95
== END 2024-03-05 18:00 | disposition home or self-care (01) ==
PROVIDERS: Emergency Provider Nurse Practitioner; PCP Family Medicine
DX: J01.90 Acute sinusitis, unspecified (principal); R05.9 Cough, unspecified; R51.9 Headache, unspecified
CPT/HCPCS: 87635; 99212; 99214; G0463

== ENCOUNTER 2024-03-29 09:52 | Outpatient (CLI) | payer BC, SELFPAY | END 2024-03-29 23:59 | disposition home or self-care (01) | PROVIDERS: PCP Family Medicine; Visit Provider Family Medicine | DX: R60.0 Localized edema (principal) | CPT/HCPCS: 93971 ==

== ENCOUNTER 2024-08-20 12:45 | Outpatient (CLI) | payer MEDICARE, SELFPAY ==
--- NOTE | 2024-08-20 12:45 | MM_ITS ---
PROCEDURE INFORMATION: Exam: MG Bilateral Screening 3D Mammography Exam date and time: 08/20/2024 1:05 PM Age: 64 years old Clinical indication: Screening examination. TECHNIQUE: Imaging protocol: Bilateral Screening tomosynthesis and 2D mammography including computer-aided detection (CAD) when performed. COMPARISON: 1. MG MM DIG SCREENING MAMM BI W/CAD 06/27/2023 4:36 PM 2. MG MM DIG SCREENING MAMM BI W/CAD 06/16/2022 4:12 PM FINDINGS: MAMMOGRAPHY: Breast composition: There are scattered areas of fibroglandular density. Mass: None. Architectural distortion: None. Calcifications: No suspicious calcifications. Asymmetric density: None. Skin thickening: None. Axillary adenopathy: None. IMPRESSION: No mammographic evidence of malignancy. Annual screening is recommended unless otherwise clinically indicated. ASSESSMENT: BI-RADS Category 1: Negative.
== END 2024-08-20 23:59 | disposition home or self-care (01) ==
LOC: RAD 12:45
PROVIDERS: PCP Family Medicine; Visit Provider Nurse Practitioner Obstetrics & Gynecology
DX: Z12.31 Encounter for screening mammogram for malignant neoplasm of breast (principal)
CPT/HCPCS: 77063; 77067

== ENCOUNTER 2025-03-03 09:24 | Outpatient (CLI) | payer MEDICARE, SELFPAY ==
--- OUTSIDE RECORDS SUMMARY | 2024-07-26 05:45 | XMS_ITS ---
[facility] Address [address] [facility] [address] [place] [id number] Care Team Providers Care Technical Editor Name Role Phone Cristela Whitaker Primary Care Provider Allergies Allergen (clinical drug ingredient) Drug/Non Drug Allergy documented on EMR Reaction Allergy Type Onset Date Status Penicillin Unknown Drug Allergy Active Results Component Value Reference Range Notes Glycohemoglobin A1c (in hous e) Reviewed date:07/26/2024 12:45:25 PM Interpretation:6.5 Performing Lab: Notes/Report: 6.5 glycohemoglobin 6.5% 5 - 6.5 % P-Comprehensive Metabolic Pa victoria (CMP) Reviewed date:08/01/2024 09:52:06 AM Interpretation:gluc 135, a1c 6.5 discussed in OV Performing Lab: Notes/Report: Test performed by [facility] , [address], [place] [address] Huy Lockwood MD, Poultry Farmer Meat CLIA: [id number] Sodium 141 135-145 mmol/L Potassium 3.7 3.5-5.3 mmol/L Chloride 105 97-108 mmol/L CO2 22 22-32 mmol/L Glucose 135 65-99 mg/dL BUN 15 8-23 mg/dL Creatinine 0.68 0.50-1.00 mg/dL Calcium 8.9 8.6-10.4 mg/dL eGFR by Creatinine 96 >59 mL/min/1.73m2 Protein 6.3 6.0-8.3 g/dL Albumin 4.0 3.5-5.3 g/dL Alkaline Phosphatase 69 35-121 IU/L ALT (SGPT) 10 <5-47 IU/L AST (SGOT) 14 <5-40 IU/L Bilirubin, Total 0.3 <0.2-1.2 mg/dL A/G Ratio 1.7 1.1-2.5 P-Lipid Panel Reviewed date:08/01/2024 09:52:06 AM Interpretation:Normal Performing Lab: Notes/Report: Test performed by [facility] [place] [id number] [facility] , [place] [address] Huy Lockwood MD, Poultry Farmer Meat CLIA: [id number] Cholesterol 135 <200 mg/dL Triglycerides 119 <150 mg/dL HDL Cholesterol 42 >39 mg/dL Cholesterol / HDL Ratio 3.21 0.00-4.44 Ratio Non-HDL Cholesterol 93 <130 mg/dL LDL Cholesterol (Calculation) 69 <130 mg/dL LDL Cholesterol Levels* Less than 100 mg/dL Optimal 100 to 129 mg/dL Near Optimal/ Above Optimal 130 to 159 mg/dL Borderline High 160 to 189 mg/dL High 190 mg/dL and above Very High * Categories as recommended by the 2004 ATPIII guidelines LDL/HDL Ratio 1.6 <3.3 Ratio LDL Cholesterol Patient History Test Date: 07/26/2024 LDL Results: 69 Units: mg/dL % Change: - REASON FOR VISIT 4 Month Check Up Medications Medication SIG (Take, Route, Frequency, Duration) Notes Start Date End Date Status metFORMIN HCl 500 MG Take [address] [facility] once daily; Duration: 90 Active amLODIPine Besylate 5 MG Take 1 tablet b y mouth once daily; Duration: 90 Active Lisinopril 40 MG Take 1/2 (one-half) tablet by mouth twice daily; Duration: 90 days Active Dicyclomine HCl 10 MG 2 capsules Orally Four times a day; Duration: 15 days Active Terbinafine HCl 250 MG 1 tablet Orally O nce a day; Duration: 30 day(s) 07/17/2023 Not-Taking Metoprolol Tartrate 100 MG 1 tab(s) orally twice a day; Duration: 90 days Active Rosuvastatin Calcium 20 MG TAKE 1 TABLET BY MOUTH ONCE DAILY AT BEDTIME; Duration: 90 Active Fluticasone Propionate 50 MCG/ACT as directed each nostril once a day; Duration: 30 day(s) 03/09/2020 Active Triamterene-HCTZ 37.5-25 MG 1/2 tablet in the morning Orally Once a day; Duration: 30 day(s) 01/10/2024 Active oxyBUTYnin Chloride 5 MG 1 tab(s) orally 3 times a day; Duration: 30 day(s) Active Estradiol 1 MG 1 tab(s) orally once a day; Duration: 30 day(s) Active PriLOSEC OTC 20 MG 1 tab(s) orally once a day 03/24/2015 Active Aspirin 81 MG 1 tab(s) orally once daily Active Problems Problem Type SNOMED Code ICD Code Onset Dates Problem Status W/U Status Risk Notes Problem Pure hypercholesterolemia (776177833) Pure hypercholesterolemia (E78.00) Active confirmed Vital Signs Blood pressure systolic 120 mm Hg 07/26/19 25 Blood pressure diastolic 74 mm Hg 025 Heart Rate 59 /min 07/26/2024 Height 65 in 07/26/2024 Weight 173.6 lbs 07/26/2024 BMI 28.89 kg/m2 07/26/2024 Encounters Encounter Location Date Provider Diagnosis [facility] [address] [facility] [address] [place], [place] [id number] 07/26/2024 Cristela Whitaker Essential hypertensi on I10 ; Pure hypercholesterolemia E78.0 ; Type 2 diabetes mellitus without complication, without long-term current use of insulin E11.9 ; Localized edema R60.0 and Hyperlipidemia, unspecified E78.5 Assessments Encounter Date Diagnosis (ICD Code) Assessment Notes Treatment Notes Treatment Clinical Notes Section Notes 07/26/2024 Essential hypertensi on (ICD-10 - I10) 07/26/2024 Pure hypercholesterolemia (ICD-10 - E78.0) 07/26/2024 Type 2 diabetes jaz itus without complication, without long-term current use of insulin (ICD-10 - E11.9) 07/26/2024 Localized edema (ICD -10 - R60.0) 07/26/2024 Hyperlipidemia, unspecified (ICD-10 - E78.5) Plan Of Treatment Next Appt Details Follow Up: 6 Months, Reason: Provider Name:Cristela Maradiaga er, 06/09/2025 10:45:00 AM, [address] [facility] [address] [facility], [address] [place] [address], [phone], Progress Notes * SHELIA HENRYROSEOB:1960 (64 yo F)Acc No.[id number]:07/26/2024 Progress Notes Patient: LILLIANA HARRIS Provider: Cristela Whitaker M.D. :1960 A ge:64 Y S ex:Female Date:07/26/2024 Address:[address] [place] [id number] Subjective: * Chief Complaints: * 1 . 4 Month Check Up. * HPI: C ardiology: The pt is here for a check up on Hypertension, Hyperlipidemia and Diabetes. Pt states she is doing good except for some swelling in her left foot. Pt is fasting except for coffee with slenda and a drop of creamer. Denies : Chest Pain. D enies : Short of Breath. D enies : Dizziness. D enies : Palpitations. * ROS: D ERMATOLOGY: no R miguel. n o H yessy. G ASTROENTEROLOGY: no N ausea. n o V omiting. n o D iarrhea.? U ROLOGY: no D ifficulty urinating. n o B lood in urine. * Medical History: H ypertension, Hyperlipidemia, Anemia, Diverticulosis, Diabetes Mellitus, Hematuria, Interstitial Cystitis, October 2021 eye exam, [facility], Dexa Scan normal 08/10/23. * Surgical History: t ubal ligation , total hysterectomy , appendectomy , cardiac catheterization 05/31/2007, Colonoscopy - sigmoid diverticulosis 2013, L2-L5 Laminectomy, Dr. Francis Boykin 12/23/2015. * Family History: F ather: , heart disease. M other: , heart disease, thyroid disease. S iblings: diabetes, breast cancer, sister with heart attack 12/19, stent. 3 brother(s) , 3 sister(s) . 1 son(s) - healthy. . * Social History: C URRENT TOBACCO USE S moking Status: Patient does smoke, number of cigarettes per day: 3, Smoking preference: cigarettes. C affeine: yes, frequency:. Marital Status: . Alcohol: No. * Medications: T aking PriLOSEC OTC 20 MG Tablet Delayed Release 1 tab(s) orally once a day , Taking Aspirin 81 MG Tablet Delayed Release 1 tab(s) orally once daily , Taking Estradiol 1 MG Tablet 1 tab(s) orally once a day , Taking oxyBUTYnin Chloride 5 MG Tablet 1 tab(s) orally 3 times a day , Taking Fluticasone Propionate 50 MCG/ACT Suspension as directed each nostril once a day , Taking Triamterene-HCTZ 37.5-25 MG Tablet 1/2 tablet in the morning Orally Once a day , Taking Metoprolol Tartrate 100 MG Tablet 1 tab(s) orally twice a day , Taking Rosuvastatin Calcium 20 MG Tablet TAKE 1 TABLET BY MOUTH ONCE DAILY AT BEDTIME , Taking Lisinopril 40 MG Tablet Take 1/2 (one- half) tablet by mouth twice daily , Taking metFORMIN HCl 500 MG Tablet Take 1 tablet by mouth once daily , Taking amLODIPine Besylate 5 MG Tablet Take 1 tablet by mouth once daily , Taking Dicyclomine HCl 10 MG Capsule 2 capsules Orally Four times a day , Not-Taking Terbinafine HCl 250 MG Tablet 1 tablet Orally Once a day , Medication List reviewed and reconciled with the patient * Allergies: P enicillin. Objective: * Vitals: W t:173.6, Temp:98.0, BP:120/74, HR:59, Nurse:BRITTANEY, Ht: 65, BMI:28.89. * Examination: G eneral Examination: General Appearance: N AD, weight noted. H EENT: u nremarkable. O ral cavity: n o lesions, mucosa moist and WNL, no erythema. N tremaine: t he right supraclavicular lesion has completely resolved.. C hest: n ormal shape and expansion. H eart: R SR. L ungs: c lear to auscultation. N eurologic Exam: I ntact, gait normal. S kin: n ormal, no rash. P eripheral pulses: n ormal . E xtremities: l eft l eg with 1+ edema. Right thumbnail seems improved. Assessment: * Assessment: 1. E ssential hypertension - I10 (Primary) 2 . P ure hypercholesterolemia - E78.0 3 . T ype 2 diabetes mellitus without complication, without long-term current use of insulin - E11.9 4 . L ocalized edema - R60.0 5 . Hyperlipidemia, unspecified - E78.5 Plan: * Treatment: Value Reference Range A /G Ratio 1.7 1.1-2.5 - * A lbumin 4.0 3.5-5.3 - g/dL * A lkaline Phosphatase 69 35-121 - IU/L * A LT (SGPT) 10 <5-47 - IU/L * A ST (SGOT) 14 <5-40 - IU/L * B ilirubin, Total 0.3 <0.2-1.2 - mg/dL * B UN 15 8-23 - mg/dL * C alcium 8.9 8.6-10.4 - mg/dL * C hloride 105 97-108 - mmol/L * C O2 22 22-32 - mmol/L * C reatinine 0.68 0.50-1.00 - mg/dL * G lucose 135 H 65-99 - mg/dL * P otassium 3.7 3.5-5.3 - mmol/L * S odium 141 135-145 - mmol/L * P rotein 6.3 6.0-8.3 - g/dL * e GFR by Creatinine 96 >59 - mL/min/1.73m2 * Janet Watkins 08/01/2024 9:5 1:44 AM >Patient informed of normal results. 2.?Type 2 diabetes mellitus without complication, without long-term current use of insulin?LAB: Glycohemoglobin A1c (in house) (Collection Date & Time - 07/26/2024)? 6.5* Value Reference Range g lycohemoglobin 6.5% 5 - 6.5 % * Janet Watkins 07/26/2024 11: 04:39 AM > , Provider reviewed results while patient in office. 3.?Hyperlipidemia, unspecified?LAB: P-Lipid Panel (Collection Date & Time - 07/26/2024 10:06 AM)?Normal* Value Reference Range C holesterol / HDL Ratio 3.21 0.00-4.44 - Ratio * C holesterol 135 <200 - mg/dL * H DL Cholesterol 42 >39 - mg/dL * L DL Cholesterol (Calculation) 69 <130 - mg/d L * L DL/HDL Ratio 1.6 <3.3 - Ratio * N on-HDL Cholesterol 93 <130 - mg/dL * T riglycerides 119 <150 - mg/dL * Janet Watkins 08/01/2024 9:5 1:44 AM >Patient informed of normal results. * Procedure Codes: G 2211 Complex e/[place], [address] GLYCATED HEMOGLOBIN TEST, Modifiers: QW , 3044F HG A1C LEVEL LT 7.0%, G8752 MOST RECENT SYSTOLIC BP < 140MM HG, G8754 MOST RECENT DIASTOLIC BP < 90MM HG * Follow Up: 6 Months * Images: Billing Information: * Visit Code: 53313 Office Visit, Est Pt., Level 4. * Procedure Codes: G2211 Complex e/[place]. [address] GLYCATED HEMOGLOBIN TEST. Modifiers: QW 3044F HG A1C LEVEL LT 7.0%. G8752 MOST RECENT SYSTOLIC BP < 140MM HG. G8754 MOST RECENT DIASTOLIC BP < 90MM HG. * Electronic signature of Cristela Whitaker MD on 03/03/2025 at 09:45 AM EDT Sign off status: Pending * Provider: Cristela Whitaker M.D. Date: 0 07/26/2024 Generated for [facility] [place]/Kaylan/Tabathaitting on: 0 03/03/2025 09:45 AM EDT History and Physical Notes * HPI (History of Present Illness) Category Sub-Category Detail Notes Category Not es Cardiology Short of Breath Chest Pain Palpitations Dizziness Examination Category Sub-Category Detail Notes Category Not es General Examination HEENT: unremarkable Heart: RSR Lungs: clear to auscultatio n Extremities: left leg with 1+ surinder ma. Right thumbnail seems improved General Appearance: NAD, weight noted Skin: normal, no rash Neurologic Exam: Intact, gait normal Neck: the right supraclavi cular lesion has completely resolved. Oral cavity: no lesions, mucosa m oist and WNL, no erythema Peripheral pulses: normal Chest: normal shape and exp ansion
--- NOTE | 2025-03-03 09:27 | XR_ITS ---
FINAL REPORT TECHNIQUE: Bone densitometry calculations of the lumbar spine and bilateral hips were obtained. CLINICAL HISTORY: SCREENING COMPARISON: None FINDINGS: Using L1-4, the bone mineral density of the spine is 1.762 g/cm2, corresponding to T-score of 6.5 and a Z score of 8.4. This is within the range of normal. Using the left hip, the bone mineral density of the femoral neck is 0.904 g/cm2, corresponding to a T-score of 0.5 and a Z-score of 2.1. This is within the range of normal. Using the right hip, the bone mineral density of the femoral neck is 0.989 g/cm?, corresponding to a T-score of 1.3 and a Z-score of 2.9. This is within the range of normal. NOTE: T-score: Standard deviation compared with peak bone mass of young adult mean. *Following the recommendations of the International Society of Bone densitometry, classification of hip BMD is based on the lower of two T-scores; total hip or femoral neck. IMPRESSION: 1. Bone mineral density of the lumbar spine within the range of normal. 2. Bone mineral density of the bilateral hips within the range of normal. Reviewed, Interpreted and Dictated by Velia Garcia MD Transcribed by Lucero Barrow Authenticated and [facility]
--- NOTE | 2025-03-03 09:28 | CT_ITS ---
FINAL REPORT TECHNIQUE: Thin section axial images were obtained through the lungs using a low-dose technique per lung cancer screening protocol. Reconstruction images were obtained using the axial data. Exam was performed using dose reduction technique. CLINICAL HISTORY: SCREENING, former smoker - quit 2 yrs ago, 1/2 pack per day for 15 yrs, cousin with lung cancer COMPARISON: CT chest 10/13/2021 FINDINGS: CTDLvol: 2.90 DLP: 106.29 Former smoker 7-1/2 pack year history Lungs: There is a 3 mm nodule along the left major fissure on series 4 image 48 and a 4 mm subpleural left lower lobe nodule on series 2 image 254. The lungs are otherwise clear. Lymph nodes: No thoracic lymphadenopathy. Mediastinum: Heart size is normal. Pleura/pericardium: No pleural or pericardial effusion. Other: No acute abnormality in the upper abdomen. IMPRESSION: Left lung nodules, largest 4 mm. Lung RADS: 2 Recommendation: 12-month follow-up low-dose chest CT. Reviewed, Interpreted and Dictated by Velia Garcia MD Transcribed by Sherin Jerry Authenticated and [facility]
--- OUTSIDE RECORDS SUMMARY | 2025-03-03 09:46 | XMS_ITS | Clinical Summary ---
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 (ICD-10-CM ) 10/20 Active 10/20 Ernestine Juancarlos Leukemoid reaction DM Type II E11.9 (ICD-10-CM ) 10/20 Active 10/20 Ernestine Juancarlos Type 2 diabetes mellitus without complications Benign Essential Hypertension 28433975 (SNOMED CT) 10/20 Active 10/20 Ernestine Juancarlos Benign hypertension Streptococcus infection, group A 611461040 (SNOMED CT) 10/19 Active 10/19 Rajani Edelen Streptococcus pyogenes infection Abscess, supraclavicular (neck) 4358348 (SNOMED CT) 10/19 Active 10/19 Rajani Edelen Abscess of neck Medications Medication Instructions Start Date Stop Date Generic Name ND Provider CEFUROXIME AXETIL 500 MG TABS Take 1 tablet by mouth twice a day cefuroxime axetil 56226347706 Willem Gardner MD ceftriaxone in dextrose,iso-os piggyback 2GM IV Q24hrs OPAT ceftriaxone in dextrose,iso-os piggyback Tiffanie Galindo ESTRADIOL 1 MG TABS 1 mg, Oral, Daily estradiol [id number] Rylie [place] IBGARD 90 MG CR-CAPS Oral, Daily as needed peppermint oil [id number] Rylie [place] LISINOPRIL 40 MG TABS 40 mg, Oral, Daily, Pt takes half (20mg) in AM, half (20 mg) in PM lisinopril [id number] Rylie [place] METFORMIN HCL ER 500 MG LG17H-GVM 500 mg, Oral, Daily With Breakfast metformin [id number] Rylie [place] METOPROLOL TARTRATE 100 MG TABS 100 mg, Oral, 2 Times Daily metoprolol tartrate [id number] Rylie [place] OMEPRAZOLE 20 MG CPDR 20 mg, Oral, Daily as needed omeprazole [id number] Rylie [place] OXYBUTYNIN CHLORIDE 5 MG TABS 5 mg, Oral, 3 Times Daily as needed oxybutynin chloride 26365468342 Rylie [place] ROSUVASTATIN CALCIUM 20 MG TABS 20 mg, Oral, Nightly rosuvastatin [id number] Rylie [place] SACCHAROMYCES BOULARDII 250 MG CAPS 250 mg, Oral, Daily saccharomyces boulardii [id number] Rylie [place] TRIAMTERENE-HCTZ 37.5-25 MG TABS 1 tablet, Oral, Daily triamterene-hydr ochlorothiazid 74370740005 Rylie [place] AMLODIPINE BESYLATE 5 MG TABS 5 mg, Oral, Daily amlodipine [id number] Rylie [place] aspirin 81 mg tablet,chewable 81 mg, Oral, Daily aspirin [id number] Rylie [place] aspirin-acetamin ophen-caffeine 250-250-65 mg tablet 1 tablet, Oral, Every 6 Hours as needed aspirin-acetamin ophen-caffeine Rylie [place] DICYCLOMINE HCL 10 MG CAPS 10 mg, Oral, 3 Times Daily dicyclomine [id number] Rylie [place] ESTRADIOL 1 MG TABS 1 mg, Oral, Daily estradiol 55972805295 Rylie Lou- Miroslava IBGARD 90 MG CR-CAPS Oral, Daily PRN peppermint oil [id number] Rylie [place]- [place] Medications Administered No information available. Allergies, Adverse Reactions, Alerts Allergy Name Reaction Description Start Date Severity Statu s Provider PENICILLINS Hives and Itching Moderate Active Rylie Lou-[place] Results Date Name Value Unit Range Flag Description Lab Report: CBC WITH AUTO DI FFERENTIAL ZZ-GE-unk 0.0 /100 WBC 0.0-0.2 GE use only - for [employer] import when terms are not otherwise specified IMMATUREGRAN 0.03 10*3/MM3 0.00-0.05 Immature granulocytes [#/volume] in Blood BASO# 0.06 10*3/mm3 0.00-0.20 Basophils [#/vol ume] in Blood EOS ABSLT 0.23 10*3/uL 0.00-0.40 Eosinophi ls [#/volume] in Blood MONOSCT AUTO 0.56 10*3/uL 0.10-0.90 Monocy cornelius [#/volume] in Blood by Automated count LYMPHCT AUTO 2.52 10*3/mm3 0.70-3.10 Lymph ocytes [#/volume] in Blood by Automated count ABS NEUTROPH 4.50 10*3/uL 1.70-7.00 Neutro phils [#/volume] in Blood IMM GRANU % 0.4 % 0.0-0.5 Immature granulocytes/100 leukocytes in Blood % EOS AUTO 2.9 % 0.3-6.2 Eosinophil s/100 leukocytes in Blood by Automated count MONOCYTE % 7.1 % 5.0-12.0 Monocytes /100 leukocytes in Blood by Automated count LYMPHOCY BF 31.9 % 19.6-45.3 lymphoc ytes as percent of body fluid leukocytes NEUTROP BF 56.9 % 42.7-76.0 Neutroph ils/100 leukocytes in Body fluid PLATELETS 239 10*3/mm3 140-450 Platelets [#/volume] in Blood by Automated count RDW_ 14.4 12.3-15.4 RDW, no uni ts MCHC 32.8 G/DL 31.5-35.7 MCHC [Mass/ volume] by Automated count MCH 29.8 pg 26.6-33.0 MCH [Entiti c mass] by Automated count MCV 91.0 fL 79.0-97.0 MCV [Entiti c volume] by Automated count HCT 40.6 % 34.0-46.6 Hematocrit [Volume Fraction] of Blood by Automated count HGB 13.3 g/dL 12.0-15.9 Hemoglobin [Mass/volume] in Blood RBC 4.46 10*6/mm3 3.77-5.28 Erythrocyt es [#/volume] in Blood by Automated count WBC 7.90 10*3/mm3 3.40-10.8 0 Leukocytes [#/volume] in Blood by Automated count Office Visit: 12 MEDS REVIEW Done Documenta tion of current medications (procedure) ORALTOBACUSE Never Tobacco smoking status CIGARET SMKG yes Tobacco smoking status SMOK STATUS Current every day smoker Tobacco smoking status Lab Report: SEDIMENTATION RA TE ESR 32 mm/h 0-30 H Erythrocyte sedimentation rate by Westergren method Lab Report: C-REACTIVE PROTE IN CRP <0.30 mg/dL 0.00-0.50 C reactive protein [Mass/volume] in Serum or Plasma Lab Report: COMPREHENSIVE ME TABOLIC PANEL ANIONGAP 8.0 mmol/L 5.0-15.0 anion gap, serum BUN/CREAT 21.9 7.0-25.0 Urea nitrogen/Creatinine [Mass Ratio] in Serum or Plasma BILI TOTAL 0.3 mg/dL 0.0-1.2 Bilirubin. total [Mass/volume] in Serum or Plasma ALK PHOS 69 U/L 39-117 Alkaline partha sphatase [Enzymatic activity/volume] in Blood SGOT (AST) 11 U/L 1-32 Aspartate aminotransferase [Enzymatic activity/volume] in Serum or Plasma SGPT (ALT) 9 U/L 1-33 Alanine aminotransferase [Enzymatic activity/volume] in Serum or Plasma ALBUMIN 4.20 g/dL 3.50-5.20 Albumin [Mass/volume] in Serum or Plasma PROTEIN, TOT 7.0 g/dL 6.0-8.5 Protein [Mass/volume] in Serum or Plasma CALCIUM 10.0 mg/dL 8.6-10.5 Calcium [Moles/volume] in Serum or Plasma CO2 26.0 mmol/L 22.0-29.0 Carbon diox jenn, total [Moles/volume] in Venous blood CHLORIDE 104 mmol/L 98-107 Chloride [Moles/volume] in Serum or Plasma POTASSIUM 4.0 mmol/L 3.5-5.2 Potassium [Moles/volume] in Serum or Plasma SODIUM 138 mmol/L 136-145 Sodium [Moles/volume] in Serum or Plasma CREATININE 0.64 mg/dL 0.57-1.00 Creatini ne [Mass/volume] in Serum or Plasma BUN 14 mg/dL 8-23 Urea nitrogen [Mass/volume] in Serum or Plasma GLUCOSE SER 122 mg/dL 65-99 H Glucose [Mass/volume] in Serum or Plasma Plan of Care Type Date Detail Pending order STAT Labs Pending order STAT Labs Pending order CBC with Differe ntial Pending order C- reactive prot ein Pending order Sedimentation Ra te (ESR) Pending order STAT Labs Pending order CMP Pending order CBC with Differe ntial Pending order C- reactive prot ein Pending order Sedimentation Ra te (ESR) Pending order STAT Labs Pending order Ceftriaxone Procedures Code Procedure Name Date Entry Date CPT-sl STAT Labs CPT-sl STAT Labs [id number] CBC with Differential 2021 CPT-28587 C- reactive protein CPT-89221 Sedimentation Rate (ESR) 202 07/17/23 CPT-sl STAT Labs CPT-89956 CMP [id number] CBC with Differential 2021 CPT-75109 C- reactive protein CPT-52755 Sedimentation Rate (ESR) 202 07/17/16 CPT-sl STAT Labs CPT-J0696 Ceftriaxone Vital Signs Date Name Value Unit Description BMI (Body Mass Index) 27.63 kg/m2 Bod y Mass Index (Ratio) Body Temperature 97.1 [degF] temperat ure E&M BP Diastolic 78 mm[Hg] blood pressu re, diastolic BP Systolic 130 mm[Hg] blood pressur e, systolic Heart Rate 56 /min pulse rate Height 63 [in_us] height E&M Respiratory Rate 16 /min respirat ory rate E&M Weight Measured 156 [lb_av] weight E& M Weight Measured 156 [lb_av] weight E& M Immunizations No information available. Advance Directives Directive Description Start Date NO LIVING WILL ON FILE
--- OUTSIDE RECORDS SUMMARY | 2025-03-03 09:46 | XMS_ITS | Patient Health Record ---
Author Organization [facility] Address [address] [place] [id number] Care Team Providers Care Commercial Lending Assistant Name Role Phone Cristela Whitaker Primary Care Provider Allergies Allergen (clinical drug ingredient) Drug/Non Drug Allergy documented on EMR Reaction Allergy Type Onset Date Status Penicillin Unknown Drug Allergy Active Results Component Value Reference Range Notes Rapid Strep- Inhouse Reviewed date:02/07/2025 03:25:13 PM Interpretation: Performing Lab: Notes/Report: strep test Neg CBC Venipuncture (in house) Reviewed date:02/07/2025 11:15:08 AM Interpretation: Performing Lab: Notes/Report: wbc 7.9 3.5 - 10 lymph 31.5% 15 - 50 mid 7.0% 2 - 15 gran 61.5% 35 - 80 rbc 4.47 3.5 - 5.5 hgb 13.2 11.5 - 16.5 hct 39.8 35 - 55 mcv 89.1 75 - 100 mch 29.6 25 - 35 mchc 33.2 31 - 38 platlet 262 100 - 400 Glycohemoglobin A1c (in hous e) Reviewed date:02/07/2025 03:25:35 PM Interpretation:6.4 Performing Lab: Notes/Report: 6.4 glycohemoglobin 6.4% 5 - 6.5 % P-Lipid Panel Reviewed date:08/01/2024 09:52:06 AM Interpretation:Normal Performing Lab: Notes/Report: CLIA: [id number] Huy Lockwood MD, Detective [address] [place] [address] , [address], [place] [address] Test performed by [facility] Cholesterol 135 <200 mg/dL Triglycerides 119 <150 [...] Results: 69 Units: mg/dL % Change: - P-Comprehensive Metabolic Pa victoria (CMP) Reviewed date:08/01/2024 09:52:06 AM Interpretation:gluc 135, a1c 6.5 discussed in OV Performing Lab: Notes/Report: Test performed by [facility] [address] [facility] , [address], [place] [address] Huy Lockwood MD, Detective CLIA: [id number] Sodium 141 135-145 mmol/L Potassium 3.7 3.5-5.3 [...] 0.3 <0.2-1.2 mg/dL A/G Ratio 1.7 1.1-2.5 Glycohemoglobin A1c (in hous e) Reviewed date:07/26/2024 12:45:25 PM Interpretation:6.5 Performing Lab: Notes/Report: 6.5 glycohemoglobin 6.5% 5 - 6.5 % Glycohemoglobin A1c (in hous e) Reviewed date:03/28/2024 12:58:12 PM Interpretation:6.1 Performing Lab: Notes/Report: 6.1 glycohemoglobin 6.1% 5 - 6.5 % P-Comprehensive Metabolic Pa victoria (CMP) Reviewed date:03/28/2024 12:57:47 PM Interpretation:satisfactory Performing Lab: Notes/Report: Test performed by [employer] [address] [place] [address] , [address], [place] [address] Huy Lockwood MD, Detective CLIA: [id number] Sodium 142 135-145 mmol/L Potassium 5.3 3.5-5.3 mmol/L Chloride 105 97-108 mmol/L CO2 27 22-32 mmol/L Glucose 103 65-99 mg/dL BUN 11 8-23 mg/dL Creatinine 0.77 0.50-1.00 mg/dL Calcium 9.5 8.6-10.4 mg/dL eGFR by Creatinine 85 >59 mL/min/1.73m2 Protein 6.0 6.0-8.3 g/dL Albumin 3.9 3.5-5.3 g/dL Alkaline Phosphatase 66 35-121 IU/L ALT (SGPT) 12 <5-47 IU/L AST (SGOT) 14 <5-40 IU/L Bilirubin, Total 0.4 <0.2-1.2 mg/dL A/G Ratio 1.9 1.1-2.5 Medications Medication SIG (Take, Route, Frequency, Duration) Notes Start Date End Date Status Dicyclomine HCl 10 MG TAKE 2 CAPSULES BY MOUTH 4 TIMES DAILY FOR 15 DAYS; Duration: 15 Active Estradiol 1 MG 1 tab(s) orally once a day; Duration: 30 day(s) Active oxyBUTYnin Chloride 5 MG 1 tab(s) orally 3 times a day; Duration: 30 day(s) Active PriLOSEC OTC 20 MG 1 tab(s) orally once a day 03/24/2015 Active Rosuvastatin Calcium 20 MG 1 tablet Orally Once a day; Duration: 90 days Active Aspirin 81 MG 1 tab(s) orally once daily Active Terbinafine HCl 250 MG 1 tablet Orally O nce a day; Duration: 30 day(s) 07/17/2023 Not-Taking Fluticasone Propionate 50 MCG/ACT as directed each nostril once a day; Duration: 30 day(s) 03/09/2020 Active Metoprolol Tartrate 100 MG Take 1 tablet by mouth twice daily; Duration: 90 Active metFORMIN HCl 500 MG Take 1 tablet by [facility] once daily; Duration: 90 Active Triamterene-HCTZ 37.5-25 MG TAKE 1/2 TABLET Orally Once a day; Duration: 90 days Active amLODIPine Besylate 5 MG 1 tablet Orally Once a day; Duration: 90 days Active Lisinopril 40 MG 1/2 tablet orally tw ice a day; Duration: 90 days Active Immunizations Vaccine Route Administration Date Status Comme nts Tetanus Tdap-Adacel (over 7yrs) IM Intramuscular 03/09/2020 Administered Prevnar (PCV20) IM Intramuscular 02/07/2025 Administered PNEUMOVAX 23 VACCINE IM Intramuscular 03/09/2020 Administe red Fluzone High Dose (65yr and older) IM Intramuscular 03/25/2024 Administered DT, 7 YEARS OR OLDER Unknown 08/12/1996 Administered COVID 19 Pfizer Unknown 04/29/2021 Administered COVID 19 Corona Unknown 08/19/2020 Administered Problems Problem Type SNOMED Code ICD Code Onset Dates Problem Status W/U Status Risk Notes Problem Gastroesophageal reflux disease (disorder) (796662482) GERD [Gastroesophageal reflux disease] (530.81) Active confirmed Problem Hemorrhage of colon due to diverticulosis (515116886545340) Diverticulosis of colon with hemorrhage (562.12) Active confirmed Problem Essential hypertension (10731418) Essential (primary) hypertension (I10) Active confirmed Problem Hyperglycemia (02593898) Hyperglycemia (R73.9) Active confirmed Problem Essential hypertension (11486324) Essential hypertension (I10) Active confirmed Problem Bradycardia (95292550) Bradycardia (R00.1) Active confirmed Problem Pure hypercholesterolemia (592427827) Pure hypercholesterolemia (E78.0) Active confirmed Problem Hyperlipidemia (71361173) Hyperlipidemia, unspecified (E78.5) Active confirmed Problem Onychomycosis (752493581) Onychomycosis (B35.1) Active confirmed Problem Sciatica (15414956) Sciatica, ri ght (M54.31) Active confirmed Problem Chronic fatigue syndrome (66128254) Chronic fatigue (R53.82) Active confirmed Problem Hyperlipidaemia (14752508) Hyperlipidemia, unspecified hyperlipidemia type (E78.5) Active confirmed Problem Type II diabetes mellitus without complication (206022244) Type 2 diabetes mellitus without complication, without long-term current use of insulin (E11.9) Active confirmed Problem Pure hypercholesterolemia (261421650) Pure hypercholesterolemia (E78.00) Active confirmed Problem Pure hypercholesterolemia (597007489) Pure hypercholesterolemia, unspecified (E78.00) Active confirmed Problem Irritable bowel syndrome (81852740) Irritable bowel syndrome with both constipation and diarrhea (K58.2) Active confirmed Problem Seasonal allergic rhinitis (287864204) Chronic seasonal allergic rhinitis, unspecified trigger (J30.2) Active confirmed Problem Fibrocystic breast changes (93529272) Fibrocystic breast disease (FCBD), unspecified laterality (N60.19) Active confirmed Problem Type II diabetes mellitus without complication (589923709) Type 2 diabetes mellitus without complication, unspecified whether parts counterman insulin use (E11.9) Active confirmed Problem Albuminuria (458594420) Albuminuria (R80.9) Active confirmed Problem Chronic arthritis (33952555) Chronic arthritis (M19.90) Active confirmed Problem Type 2 diabetes mellitus with other specified complication, unspecified whether mcc insulin use (E11.69) Active confirmed Vital Signs Heart Rate 62 /min 02/07/2025 Blood pressure diastolic 80 mm Hg 02/07/2025 Height 65 in 02/07/2025 Blood pressure systolic 120 mm Hg 02/07/2025 Weight 174.6 lbs 02/07/2025 BMI 29.05 kg/m2 02/07/2025 Encounters Encounter Location Date Provider Diagnosis [place] [address] [place] [id number] 03/25/2024 Cristela Whitaker Type 2 diabetes jaz itus without complication, without long-term current use of insulin E11.9 ; Essential (primary) hypertension I10 ; Hyperlipidemia, unspecified E78.5 ; Onychomycosis B35.1 ; Localized edema R60.0 ; History of tobacco use Z87.891 and [facility] [address] [place] [id number] 07/26/2024 Cristela Whitaker Essential hypertensi on I10 ; Pure hypercholesterolemia E78.0 ; Type 2 diabetes mellitus without complication, without long-term current use of insulin E11.9 ; Localized edema R60.0 and Hyperlipidemia, unspecified E78.5 [facility] [address] [place] [id number] 02/07/2025 Cristela Whitaker Essential hypertensi on I10 ; Type 2 diabetes mellitus without complication, without long-term current use of insulin E11.9 ; Pure hypercholesterolemia E78.0 ; History of tobacco use Z87.891 ; Screening for osteoporosis Z13.820 ; Encounter for immunization Z23 ; Fibrocystic breast disease (FCBD), unspecified laterality N60.19 ; Type 2 diabetes mellitus with other specified complication, unspecified whether mcc insulin use E11.69 ; BMI 29.0-29.9,adult Z68.29 and Exposure to strep throat Z20.818 [facility] [address] [place] [id number] 03/08/2024 Cristela Whitaker [place] [address] [place] [id number] 12/09/2024 Cristela Whitaker Assessments Encounter Date Diagnosis (ICD Code) Assessment Notes Treatment Notes Treatment Clinical Notes Section Notes 07/26/2024 Essential hypertensi on (ICD-10 - I10) 07/26/2024 Pure hypercholesterolemia (ICD-10 - E78.0) 02/07/2025 Essential hypertensi on (ICD-10 - I10) 02/07/2025 Type 2 diabetes jaz itus without complication, without long-term current use of insulin (ICD-10 - E11.9) 03/25/2024 Essential (primary) hypertension (ICD-10 - I10) 03/25/2024 Type 2 diabetes jaz itus without complication, without long-term current use of insulin (ICD-10 - E11.9) 03/25/2024 Hyperlipidemia, unspecified (ICD-10 - E78.5) 02/07/2025 Pure hypercholesterolemia (ICD-10 - E78.0) 07/26/2024 Type 2 diabetes jaz itus without complication, without long-term current use of insulin (ICD-10 - E11.9) 07/26/2024 Localized edema (ICD -10 - R60.0) 02/07/2025 History of tobacco u se (ICD-10 - Z87.891) 03/25/2024 Onychomycosis (ICD-1 0 - B35.1) 03/25/2024 Localized edema (ICD -10 - R60.0) 02/07/2025 Screening for osteoporosis (ICD-10 - Z13.820) 07/26/2024 Hyperlipidemia, unspecified (ICD-10 - E78.5) 02/07/2025 Encounter for immunization (ICD-10 - Z23) 03/25/2024 History of tobacco u se (ICD-10 - Z87.891) 03/25/2024 Encounter for immunization (ICD-10 - Z23) 02/07/2025 Fibrocystic breast disease (FCBD), unspecified laterality (ICD-10 - N60.19) 02/07/2025 Type 2 diabetes jaz itus with other specified complication, unspecified whether parts counterman insulin use (ICD-10 - E11.69) 02/07/2025 BMI 29.0-29.9,adult (ICD-10 - Z68.29) 02/07/2025 Exposure to strep th roat (ICD-10 - Z20.818) Plan Of Treatment Pending Test Test Name Order Date DEXA Hip and Spine 02/07/2025 Complete Metabolic Profile 07/24/2021 urine microalbumin(in House) 04/06/2021 venous doppler ultrasound leg, lower lef t 03/25/2024 Glycohemoglobin A1c (in house) Mammogram 02/07/2025 lipid profile 07/24/2021 CT Scan : Chest, low dose 03/25/2024 CT Scan : Chest, low dose 02/07/2025 Next Appt Details Provider Name:Cristela Villagregory er, 06/09/2025 10:45:00 AM, [address], [address], [place], [id number], Insurance Providers Payer Name Payer Address Payer Phone Subscriber Number Group Number Insured Name Patient Relationship to Insured Coverage Start Date Coverage End Date MEDICARE PART B [address] [address] [place] [id number] LILLIANA HENRY Self - patient is the insured [facility] [employer] [address] [place] [address] [phone] [id number] LILLIANA HENRY Self - patient is the insured Medications Administered Medication Instructions Date of Administration Dosage Notes Depo- Medrol 40 mg/ml 11/25/2009 60 mg Medical (General) History Medical History History ICD Code Hypertension Hyperlipidemia Anemia Diverticulosis Diabetes Mellitus Hematuria Interstitial Cystitis October 2021 eye exam, [place] [facility] Dexa Scan normal 08/10/23 Surgical History Surgery Date(Month/Year) tubal ligation total hysterectomy appendectomy cardiac catheterization 05/31/2007 Colonoscopy - sigmoid diverticulosis 201 4 L2-L5 Laminectomy, Dr. Francis Boykin 12/22 Hospitalization History Reason Date(Month/Year)
--- OUTSIDE RECORDS SUMMARY | 2025-03-03 09:46 | XMS_ITS | Clinical Summary ---
Author Organization [facility] Address [address] [place] [address] Care Team Providers Care Golf Club Weigher Name Role Phone Sherman Whitaker MD Primary Care Provider [phone] Allergies Active Allergy Reactions Criticality Noted Date Comments Penicillins Hives,Itching 10/15/2021 Medications metFORMIN ER (GLUCOPHAGE-XR) 500 MG 24 hr tablet Take 500 mg by mouth Daily With Breakfast. Active lisinopril (PRINIVIL,ZESTRI L) 40 MG tablet Take 40 mg by mouth Daily. Pt takes half (20mg) in AM, half (20 mg) in PM Active metoprolol tartrate (LOPRESSOR) 100 MG tablet Take 100 mg by mouth 2 (Two) Times a Day. Active amLODIPine (NORVASC) 5 MG tablet Take 5 mg by mouth Daily. Active estradiol (ESTRACE) 1 MG tablet Take 1 mg by mouth Daily. Active oxybutynin (DITROPAN) 5 MG tablet Take 5 mg by mouth 3 (Three) Times a Day As Needed. Active triamterene-hydr ochlorothiazide (MAXZIDE-25) 37.5-25 MG per tablet Take 1 tablet by mouth Daily. Active rosuvastatin (CRESTOR) 20 MG tablet Take 20 mg by mouth Every Night. Active dicyclomine (BENTYL) 10 MG capsule Take 10 mg by mouth 3 (Three) Times a Day. Active saccharomyces boulardii (FLORASTOR) 250 MG capsule Take 250 mg by mouth Daily. Active Peppermint Oil (IBGARD PO) Take by mouth Daily As Needed. Active aspirin 81 MG chewable tablet Chew 81 mg Daily. Active omeprazole (priLOSEC) 20 MG capsule Take 20 mg by mouth Daily As Needed. Active aspirin-acetamin ophen-caffeine (EXCEDRIN MIGRAINE) 250-250-65 MG per tablet Take 1 tablet by mouth Every 6 (Six) Hours As Needed for Headache. Active Active Problems Problem Noted Date Diagnosed Date Neck abscess 10/15/2021 DM2 (diabetes mellitus, type 2) 10/15/2021 HTN (hypertension) 10/15/2021 HLD (hyperlipidemia) 10/15/2021 Family History Medical History Relation Name Comments Cirrhosis Brother Heart disease Brother Stroke Brother Heart disease Father Hypertension Mother Relation Name Status Comments Brother Father Mother Social History Tobacco Use Types Packs/Day Years Used Date Smoking Tobacco: Every Day Cigarettes 0.3 11 Smokeless Tobacco: Never Alcohol Use Standard Drinks/Week Comments Not Currently 0 (1 standard drink = 0.6 oz pur e alcohol) occasional AUDIT-C Answer Date Recorded Q1: How often do you have a drink containing alc ohol? Monthly or less 10/15/2021 Q2: How many drinks containi ng alcohol do you have on a typical day when you are drinking? 1 or 2 10/15/2021 Q3: How often do you have si x or more drinks on one occasion? Never 10/15/2021 Abuse Screen Answer Date Recorded Unsafe at Home or Work/School Not on file Feels Threatened by Someone? Not on file Does Anyone Keep You from Co ntacting Others or Doint Things Outside the Home? Not on file 03/24/2023 Physical Sign of Abuse Present Not on file 1 Housing Stability Answer Date Recorded Current Living Arrangements Not on file 03/12 Potentially Unsafe Housing Conditions Not on yarely e 03/24/2023 Family and Community Support Answer Travis e Recorded Help with Day-to-Day Activities Not on file 03/24/2023 Lonely or Isolated Not on file 03/24/2023 Employment Answer Date Recorded Do you want help finding or keeping work or a rodrick b? Not on file 03/24/2023 Disabilities Answer Date Recorded Concentrating, Remembering, or Making Decisions Difficulty Not on file 03/24/2023 Doing Errands Independently Difficulty Not on fi le 03/24/2023 Education Answer Date Recorded Help with school or training? Not on file Preferred Language Not on file 03/24/2023 Comments Unknown Sex and Gender Information Value Date Recorded Sex Assigned at Not on file Legal Sex Female 5:23 PM EDT Gender Identity Not on file Sexual Orientation Not on file Last Filed Vital Signs Vital Sign Reading Time Taken Comments Blood Pressure 126/90 10/19/2021 11:05 AM EDT Pulse 61 10/19/2021 11:05 AM EDT Temperature 36.9 C (98.4 F) 10/19/2021 11:05 AM EDT Respiratory Rate 18 10/19/2021 11:05 AM EDT Oxygen Saturation 100% 10/19/2021 4:20 AM EDT Inhaled Oxygen Concentration - - Weight 67.8 kg (149 lb 8 oz) 10/15/2021 6:27 PM EDT Height 160 cm (5' 3 ) 10/15/2021 6:27 PM EDT Body Mass Index 26.48 10/15/2021 6:27 PM EDT Plan of Treatment Health Maintenance Due Date Last Done Comments DXA SCAN 1958 LIPID PANEL 1958 MAMMOGRAM 1998 COLOGUARD 2003 COLON CANCER SCREENING 5 YEA R SIGMOIDOSCOPY 2003 COLONOSCOPY 2003 COL[address] CANCER SCREENING 2003 CT COLONOGRAPHY 2003 FECAL OCCULT BLOOD TEST 2003 FIT Testing (1 year) 2003 ZOSTER VACCINE (1 of 2) 2008 Pneumococcal Vaccine 50+ (2 of 2 - PCV) 03/09/2021 0 03/09/2020 ANNUAL PHYSICAL 10/19/2021 HEPATITIS C SCREENING 10/19/2021 INFLUENZA VACCINE 01/10/2025 COVID-19 Vaccine (3 - season) 2025, 08/19/2020 TDAP/TD VACCINES (3 - Td or Tdap) 03/09/2030 020, 08/12/1996 HEMOGLOBIN A1C Discontinued 10/15/2021 Procedures Procedure Name Priority Date/Time Associated Diagnosis Comments HEMOGLOBIN A1C Add-On 10/15/2021 9:22 PM EDT from Last 3 Months or Most Recently Relevant to Health Maintenance Results * (ABNORMAL) Hemoglobin A1c (10/15/2021 9:22 PM EDT) Hemoglobin A1C 6.40(H) 4.80 - 5.60 % 10/16/2021 4:12 AM EDT [facility] Blood Venipuncture / Unknown 10/15/2021 9:22 PM EDT 10/15/2021 9:29 PM EDT Narrative [facility] - 10/16/2021 4:12 AM EDT Hemoglobin A1C Ranges: Increased Risk for Diabetes 5.7% to 6.4% Diabetes >= 6.5% Diabetic Goal < 7.0% us Desire Mayberry MD LAB BLOOD ORDERABLES Final Resul t [facility]
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 [facility] [address] [facility] [address] [place] [id number] PCP - General Family Medicine 10/15/21
--- OUTSIDE RECORDS SUMMARY | 2025-03-03 09:46 | XMS_ITS | Clinical Summary ---
Author Organization [facility] Address [address] [place] [address] Care Team Providers Care Extruding Machine Operator Name Role Phone Jd Purvis MD Primary Care Provider [phone] Family History Medical History Relation Name Comments Hypertension Brother 1 Heart attack Brother 2 Hypertension Mother Hypertension Sister 1 Breast cancer Sister 2 Heart attack Sister 3 Relation Name Status Comments Brother 1 Brother 2 Mother Sister 1 Sister 2 Sister 3 Social History Tobacco Use Types Packs/Day Years Used Date Smoking Tobacco: Light Smoker Alcohol Use Standard Drinks/Week Comments No 0 (1 standard drink = 0.6 oz pur e alcohol) Comments Unknown Sex and Gender Information Value Date Recorded Sex Assigned at Not on file Legal Sex Female 6:27 PM EDT Gender Identity Not on file Sexual Orientation Not on file Last Filed Vital Signs Vital Sign Reading Time Taken Comments Blood Pressure - - Pulse - - Temperature - - Respiratory Rate - - Oxygen Saturation - - Inhaled Oxygen Concentration - - Weight 77.1 kg (170 lb) 08/14/2013 1:08 PM EST Height 160 cm (5' 3 ) 08/14/2013 1:08 PM EST Body Mass Index 30.11 08/14/2013 1:08 PM EST Plan of Treatment Not on file Care Teams Extruding Machine Operator Relationship Specialty Start Date End Date Jd Purvis MD [address] [place] [id number] PCP - General 10/23/20
== END 2025-03-03 23:59 | disposition home or self-care (01) ==
LOC: RAD 09:25
PROVIDERS: PCP Family Medicine; Visit Provider Family Medicine
DX: M81.0 Age-related osteoporosis without current pathological fracture (principal); R91.8 Other nonspecific abnormal finding of lung field; Z12.2 Encounter for screening for malignant neoplasm of respiratory organs; Z87.891 Personal history of nicotine dependence
CPT/HCPCS: 71271; 77080

== ENCOUNTER 2025-05-15 15:58 | Outpatient (CLI) | payer MEDICARE, SELFPAY ==
--- NOTE | 2025-05-15 16:04 | XR_ITS ---
FINAL REPORT CLINICAL HISTORY: PAIN numbness and tingling down into hand FINDINGS: RIGHT SHOULDER Three views were obtained. There is no fracture or dislocation. There are minimal hypertrophic changes of the AC joint. No soft tissue abnormality is identified. IMPRESSION: No acute process. Reviewed, Interpreted and Dictated by Adolfo Yang MD Transcribed by [place] Authenticated and [facility]
--- NOTE | 2025-05-15 16:04 | XR_ITS ---
FINAL REPORT CLINICAL HISTORY: PAIN numbness and tingling into hand FINDINGS: CERVICAL SPINE Five views were obtained. There is no acute fracture. The disc spaces are well-preserved. There is no malalignment. There is moderate anterior osteophyte formation at C5-6. There is mild vascular calcification at the carotid bifurcations. IMPRESSION: Moderate anterior osteophyte formation at C5-6. Reviewed, Interpreted and Dictated by Adolfo Yang MD Transcribed by [place] Authenticated and [facility]
== END 2025-05-15 23:59 | disposition home or self-care (01) ==
LOC: RAD 16:00
PROVIDERS: PCP Family Medicine; Visit Provider Family Medicine
DX: M25.78 Osteophyte, vertebrae (principal); R52 Pain, unspecified; R20.0 Anesthesia of skin; R20.2 Paresthesia of skin
CPT/HCPCS: 72050; 73030